=== PATIENT | female | born 1980 | race Caucasian/White ===

== ENCOUNTER 2016-12-02 00:13 | Emergency (ER) | payer SELFPAY ==
[~2016-12-02] VITALS: Ht 162.6 cm; Wt 91.0 kg
[~2016-12-02 00:13] MED LIST: FIORICET PO; HYDR-3498 PO; IBUP800T25 PO; PROP20TA4 PO
[2016-12-02 00:16] VITALS: Ht 162.6 cm; Wt 91.0 kg
== END 2016-12-02 02:50 | disposition left against medical advice (07) ==
LOC: FTE 00:13
DX: Z53.21 Procedure and treatment not carried out due to patient leaving prior to being seen by health care provider (principal)

== ENCOUNTER 2017-03-30 09:59 | Emergency (ER) | payer BC ==
[~2017-03-30] VITALS: Ht 160 cm; Wt 89.0 kg
[2017-03-30 10:03] VITALS: Ht 160 cm; Wt 89.0 kg
[2017-03-30] MEDS ORDERED: ACETAMINOPHEN 325 MG TAB PO STA (10:57)
[2017-03-30] MEDS ORDERED: ONDANSETRON (ODT) 4 MG TAB ODT STA (10:57)
[2017-03-30 11:51] LABS: ADD UMIC NO; UR BILIRUBIN (Dip) NEGATIVE (NEGATIVE); UR BLOOD (Dip) NEGATIVE (NEGATIVE); UR CLARITY CLEAR (CLEAR); UR COLOR LT. YELLOW (YELLOW); UR GLUCOSE (Dip) NEGATIVE (NEGATIVE); UR KETONES (Dip) NEGATIVE (NEGATIVE); UR LEUKOCYTE ESTERASE (Dip) NEGATIVE (NEGATIVE); UR NITRITE (Dip) NEGATIVE (NEGATIVE); UR TOTAL PROTEIN (Dip) NEGATIVE (NEGATIVE); UR UROBILINOGEN (Dip) 0.2 E.U./dL (0.1-1.0)
--- NOTE | 2017-03-30 11:55 | RADRPT ---
PROCEDURE: CT Head without. CLINICAL INDICATION: Headache for 1 week. TECHNIQUE: The study was performed utilizing a multi-slice, multidetector CT scanner. Direct spira l 1 mm axial sections were obtained through the head without the use of intravenous contrast materia l. 1 or more of the following dose reduction techniques were utilized: Automated exposure control, adjustment of the mA and/or kV according to patient's size, iterative reconstruction technique. Co dilip and sagittal reformations were obtained. The images were reviewed on a PACS workstation. RADIATION DOSE: CTDIvol: 44.3 mGyDLP: 630.2 mGy-cm COMPARISON: 05/17/2015, 09/16/2014 FINDINGS: There is no intracranial hemorrhage, extra-axial fluid collection, mass lesion, midline shift or hyd rocephalus. The ventricles, sulci and cisterns are within normal limits. The white matter is unrem arkable. The juárez-white matter differentiation is preserved. The basal cisterns are patent. The m idline structures are intact. The orbits, calvarium and extracranial soft tissues are normal in john earance. There are moderate to severe inflammatory changes of the bilateral ethmoid air cells and mi ld inflammatory changes of the right sphenoid sinus. The mastoid air cells and middle ear cavities are normally aerated. IMPRESSION: 1. No acute intracranial abnormality. No intracranial hemorrhage, extra-axial fluid collection, ma ss lesion or hydrocephalous. 2. Moderate to severe inflammatory changes of the bilateral ethmoid air cells. RPTAT: DD .Laron Kendall MD, Date Time Electronically viewed and signed by .Laron Kendall MD, on 03/30/2017 11:55 .S/
[2017-03-30] MEDS ORDERED: LORA-186 PO (12:15)
[2017-03-30] MEDS ORDERED: FLUT9.9S NASAL (12:15)
[2017-03-30] MEDS ORDERED: ACET325T33 PO (12:15)
[2017-03-30] MEDS ORDERED: ONDA4TAB14 PO (12:15)
--- NOTE | 2017-03-30 12:30 | ERD ---
ER Documentation Chief Complaint Date/Time DATE: 03/30/17 TIME: 12:28 Chief Complaint ROMERO X 5 DAYS HPI This is a 36-year-old female presenting to the emergency department complaining of headache since Wednesday. Patient describes the pain as moderate in severity , comes and goes and states that it feels like pressure or like a tight band surrounding her head. Patient admits to having nausea and photophobia. She denies any other neurological deficits. Patient states that she tried ibuprofen without much relief. Patient states that about a week ago she did fall and hit her head, she did not have any headache, loss of consciousness, or abnormal changes at that time ROS All systems reviewed and are negative except as per history of present illness. Medications Home Meds Active Scripts Acetaminophen* (Tylenol*) 325 Mg Tablet, 2 TAB PO Q6 Y for PAIN AND OR ELEVATED TEMP, #20 TAB Prov:JORDAN BISHOP PA-C 03/30/17 Loratadine* (Claritin*) 10 Mg Tablet, 10 MG PO DAILY, #30 TAB Prov:JORDAN BISHOP PA-C 03/30/17 Fluticasone Propionate (Flonase Allergy Relief) 9.9 Ml [place].susp, 1 SPRAY NASAL BID, #1 BOTTLE TO EACH NOSTRIL Prov:JORDAN BISHOP PA-C 03/30/17 Ondansetron (Ondansetron Odt) 4 Mg Tab.rapdis, 4 MG PO Q6H Y for NAUSEA AND/OR VOMITING, #20 TAB Prov:JORDAN BISHOP PA-C 03/30/17 Hydrocodone Bit-Acetaminophen* ([place]*) 5-325 Mg Tab, 1 TAB PO Q6 Y for PAIN, # 7 TAB Prov:BRONWYN FREEMAN MD 05/17/15 Reported Medications Acetamin/Butalbital/Caffeine* (Fioricet*) 1 Tab Tab, 1-2 TAB PO Q4-6 HOURS Y for PAIN LEVEL 1-5, TAB 05/17/15 Ibuprofen* (Ibuprofen*) 800 Mg Tab, 800 MG PO Q6H Y for PAIN, TAB 05/17/15 Propranolol Hcl* (Propranolol Hcl*) 20 Mg Tablet, 20 MG PO BID, TAB 05/17/15 Allergies Allergies: Coded Allergies: No Known Drug Allergies (Verified Allergy, Mild, 05/17/15) PMhx/Soc History of Surgery: Yes (BILAT EAR SURGERY) Anesthesia Reaction: No Hx Neurological Disorder: Yes (MIGRAINE) Hx Respiratory Disorders: No Hx Cardiac Disorders: Yes (HTN) Hx Psychiatric Problems: No Hx Miscellaneous Medical Probl: No Hx Alcohol Use: No Hx Substance Use: No Hx Tobacco Use: No Smoking Status: Never smoker Physical Exam Vitals Vital Signs Date Time Temp Pulse Resp B/P Pulse Ox O2 Delivery O2 Flow Rate FiO2 03/30/17 10:03 78 18 140/78 99 Physical Exam GENERAL: well-developed/well-nourished, in no apparent distress, non-toxic appearing HENT: NC/AT, bilateral tympanic membrane is normal with good cone of light, nares patent, oropharynx clear without exudates EYES: Conjunctiva normal, PERRLA, EOMI, no nystagmus noted NECK: Supple, no lymphadenopathy PULM: CTA bilaterally, no rales, rhonchi, or wheezing heard CV: Normal S1S2, RRR, good capillary refill GI: Soft, non-distended, normal bowel sounds, non-tender BACK: No midline tenderness, no masses, No CVAT EXT: No clubbing, cyanosis, or edema NEURO: Alert and orientated to person, place, and time. CN II-IIX intact. Gait and coordination were normal. Hand crab backer strength were equal and within normal limits SKIN: Intact, normal turgor PSYCH: Normal mood and mentation, patient denied SI Results 24 hrs Laboratory Tests Test 03/30/17 11:23 Urine Color LT. YELLOW Urine Clarity CLEAR Urine pH 6.5 Urine Specific [place] 1.015 Urine Ketones NEGATIVE Urine Nitrite NEGATIVE Urine Bilirubin NEGATIVE Urine Urobilinogen 0.2 E.U./dL Urine Leukocyte Esterase NEGATIVE Urine Hemoglobin NEGATIVE Urine Glucose NEGATIVE% Urine Total Protein NEGATIVE Current Medications Medications (Trade) Dose Ordered Sig/Dodie Route PRN Reason Start Time Stop Time Status Last Admin Dose Admin Ondansetron HCl (Zofran Odt) 8 mg ONCE STAT ODT 03/30/17 10:57 03/30/17 10:58 DC 03/30/17 11:34 Acetaminophen (Tylenol Tab) 650 mg ONCE STAT PO 03/30/17 10:57 03/30/17 10:58 DC 6/13/17 11:34 Procedures/MDM MDM: 36 year old female presents with headache. My differential diagnoses include tension, migraine, and cluster headache, overuse medication headache, subarachnoid hemorrhage, meningitis, stroke. Pain relief was given in the ED with some improvement. Neurology exam was normal. CT of the head was done, radiologist stated: 1. No acute intracranial abnormality. No intracranial hemorrhage, extra-axial fluid collection, mass lesion or hydrocephalous. 2. Moderate to severe inflammatory changes of the bilateral ethmoid air cells. DISPOSITION: hemodynamically stable and neurovascularly intact to be discharged home. Prescriptions tylenol, flonase, claritin, zofran were given. Discussed to follow up with a primary care physician in the next couple days. Return to the ER if condition worsens or not improving as expected. Patient agreed and understood this plan. Departure Diagnosis: Primary Impression: Headache Condition: Stable Patient Instructions: What Are Migraine and Tension Headaches?, Self-Care for Headaches, Chronic Sinusitis Additional Instructions: Visite a saunders adelaida arshad para un EXAMEN.Regrese a estas instalaciones si no se mejora mesfin esperbamos o mesfin le dijimos. [place] toda la medicina feng y mesfin se le indic. Regrese a estas instalaciones si no se mejora mesfin esperbamos o mesfin le dijimos. JORDAN BISHOP PA-C Mar 30, 2017 12:30
== END 2017-03-30 12:54 | disposition home or self-care (01) ==
LOC: FTE 09:59
DX: R51 Headache (principal); I10 Essential (primary) hypertension
CPT/HCPCS: 70450; 81003; Z7610

== ENCOUNTER 2017-05-05 22:17 | Emergency (ER) | payer SELFPAY ==
[~2017-05-05] VITALS: Ht 162.6 cm; Wt 92.5 kg
[~2017-05-05 22:17] MED LIST changes: +ACET325T33 PO; +FLUT9.9S NASAL; +LORA-186 PO; +ONDA4TAB14 PO
[2017-05-05 22:21] VITALS: Ht 162.6 cm; Wt 92.5 kg
[2017-05-07] MEDS ORDERED: PROP20TA4 PO (18:46)
[2017-05-07] MEDS ORDERED: PRED20TA PO (21:09)
[2017-05-07] MEDS ORDERED: AZIT250T94 PO (21:09)
[2017-05-07] MEDS ORDERED: ALBU8.5H3 INH (21:09)
[2017-05-07] MEDS ORDERED: HYDR-906 PO (21:09)
== END 2017-05-06 01:23 | disposition left against medical advice (07) ==
LOC: FTE 22:17
DX: Z53.21 Procedure and treatment not carried out due to patient leaving prior to being seen by health care provider (principal)

== ENCOUNTER 2017-05-07 14:04 | Emergency (ER) | payer BC ==
[~2017-05-07] VITALS: Wt 74.0 kg
[2017-05-07] MEDS ORDERED: CEFTRIAXONE 1 GM/50 ML (PMX) 50 ML IVPB STA (18:39)
[2017-05-07] MEDS ORDERED: SOD CHLORIDE 0.9% 500 ML IV STA (18:39)
[2017-05-07] MEDS ORDERED: AZITHROMYCIN 500MG/NS (PMX) 250 ML IV STA (18:39)
[2017-05-07] MEDS ORDERED: PROP20TA4 PO (18:46)
--- NOTE | 2017-05-07 19:05 | RADRPT ---
PROCEDURE: XR Chest. CLINICAL INDICATION: Shortness of breath. TECHNIQUE: A single portable view of the chest was obtained. COMPARISON: 05/17/2015 FINDINGS: The cardiomediastinal silhouette is within normal limits. The lungs and pleural spaces are clear. The soft tissues and osseous structures are unremarkable. IMPRESSION: No acute cardiopulmonary disease. RPTAT: HPNM Physician Tyshawn Date Time Electronically viewed and signed by Dean Figueroa Physician on 05/07/2017 19:05 /
[2017-05-07 19:37] LABS: BASOPHIL # 0.1 10^3/ul (0.0-0.1); BASOPHILS % 0.5 % (0.0-2.0); EOSINOPHILS # 0.2 10^3/ul (0.0-0.5); EOSINOPHILS % 1.6 % (0.0-7.0); HEMATOCRIT 37.9 % (37.0-47.0); HEMOGLOBIN 13.1 g/dl (12.0-16.0); LYMPHOCYTES # 2.5 10^3/ul (0.8-2.9); LYMPHOCYTES % 25.8 % (15.0-51.0); MEAN CORPUSCULAR HEMOGLOBIN 32.5 pg (29.0-33.0); MEAN CORPUSCULAR HGB CONC 34.6 g/dl (32.0-37.0); MEAN PLATELET VOLUME 9.5 fl (7.4-10.4); MONOCYTE # 0.6 10^3/ul (0.3-0.9); MONOCYTES % 6.4 % (0.0-11.0); NEUTROPHIL # 6.4 10^3/ul (1.6-7.5); NEUTROPHILS % 65.2 % (39.0-77.0); PLATELET COUNT 372 10^3/UL (140-415); RED BLOOD COUNT 4.03 10^6/ul (4.20-5.40); RED CELL DISTRIBUTION WIDTH 12.4 % (11.5-14.5); WHITE BLOOD COUNT 9.8 10^3/ul (4.8-10.8)
[2017-05-07 19:56] LABS: ALBUMIN 4.4 g/dl (3.3-4.9); ALBUMIN/GLOBULIN RATIO 1.37; CALCIUM 9.4 mg/dl (8.4-10.2); CREATININE 0.62 mg/dl (0.44-1.00); POTASSIUM 3.9 mmol/L (3.5-5.1); TOTAL PROTEIN 7.6 g/dl (6.1-8.1)
[2017-05-07 20:00] LABS: BILIRUBIN,INDIRECT 0.2 mg/dl (0-1.1); BILIRUBIN,TOTAL 0.2 mg/dl (0.2-1.3)
[2017-05-07 20:42] VITALS: TEMP 98.3
[2017-05-07] MEDS ORDERED: HYDR-906 PO (21:09)
[2017-05-07] MEDS ORDERED: AZIT250T94 PO (21:09)
[2017-05-07] MEDS ORDERED: PRED20TA PO (21:09)
[2017-05-07] MEDS ORDERED: ALBU8.5H3 INH (21:09)
--- NOTE | 2017-05-07 21:20 | ERD ---
ER Documentation Chief Complaint Date/Time DATE: 05/07/17 TIME: 21:10 Chief Complaint cough / chest pain HPI This is a 36-year-old female who complains of productive cough for 3 days that is yellow. She is complaining of diffuse anterior and posterior chest wall pain when she coughs. She also has body aches and malaise and chills. No documented fever. No shortness of breath. No abdominal pain vomiting diarrhea. Denies any runny nose congestion sore throat ROS All systems reviewed and are negative except as per history of present illness. Medications Home Meds Active Scripts Hydrocodone/Acetaminophen ([place] 5-325 Tablet) 1 Each Tablet, 1 TAB PO Q6H Y for PAIN, #15 TAB Prov:DURAN DIAMOND DO 05/07/17 Prednisone* (Prednisone*) 20 Mg Tab, 60 MG PO DAILY for 5 Days, TAB Prov:DURAN DIAMOND DO 05/07/17 Albuterol Sulfate* (Proair HFA*) 8.5 Gm Hfa.aer.ad, 2 PUFF INH Q4, #1 INHALER Prov:DURAN DIAMOND DO 05/07/17 Azithromycin* (Zithromax*) 250 Mg Tablet, 250 MG PO .ZPACK DIRECTED, #6 TAB TAKE 500 MG (2 TABS) THE FIRST DAY THEN 250 MG (1 TAB) DAYS 2-5 Prov:DURAN DIAMOND DO 05/07/17 Reported Medications Propranolol Hcl* (Propranolol Hcl*) 20 Mg Tablet, 20 MG PO TID, TAB PATIENT TAKE 2 OR 3 TIMES A DAY 05/07/17 Discontinued Reported Medications Acetamin/Butalbital/Caffeine* (Fioricet*) 1 Tab Tab, 1-2 TAB PO Q4-6 HOURS Y for PAIN LEVEL 1-5, TAB 05/17/15 Ibuprofen* (Ibuprofen*) 800 Mg Tab, 800 MG PO Q6H Y for PAIN, TAB 05/17/15 Propranolol Hcl* (Propranolol Hcl*) 20 Mg Tablet, 20 MG PO BID, TAB 05/17/15 Discontinued Scripts Acetaminophen* (Tylenol*) 325 Mg Tablet, 2 TAB PO Q6 Y for PAIN AND OR ELEVATED TEMP, #20 TAB Prov:JODRAN BISHOP PA-C 03/30/17 Loratadine* (Claritin*) 10 Mg Tablet, 10 MG PO DAILY, #30 TAB Prov:JORDAN BISHOP PA-C 03/30/17 Fluticasone Propionate (Flonase Allergy Relief) 9.9 Ml [place].susp, 1 SPRAY NASAL BID, #1 BOTTLE TO EACH NOSTRIL Prov:JORDAN BISHOP PA-C 03/30/17 Ondansetron (Ondansetron Odt) 4 Mg Tab.rapdis, 4 MG PO Q6H Y for NAUSEA AND/OR VOMITING, #20 TAB Prov:JORDAN BISHOP PA-C 03/30/17 Hydrocodone Bit-Acetaminophen* ([place]*) 5-325 Mg Tab, 1 TAB PO Q6 Y for PAIN, # 7 TAB Prov:BRONWYN FREEMAN MD 05/17/15 Allergies Allergies: Coded Allergies: No Known Drug Allergies (Verified Allergy, Mild, 05/07/17) PMhx/Soc History of Surgery: Yes (BILAT EAR SURGERY) Anesthesia Reaction: No Hx Neurological Disorder: Yes (MIGRAINE) Hx Respiratory Disorders: No Hx Cardiac Disorders: Yes (HTN) Hx Psychiatric Problems: No Hx Miscellaneous Medical Probl: No Hx Alcohol Use: No Hx Substance Use: No Hx Tobacco Use: No Smoking Status: Never smoker FmHx Family History: No coronary disease Physical Exam Vitals Vital Signs Date Time Temp Pulse Resp B/P Pulse Ox O2 Delivery O2 Flow Rate FiO2 05/07/17 20:42 98.3 88 18 120/76 99 05/07/17 19:25 98.8 88 18 117/77 99 05/07/17 14:13 98.0 78 18 127/81 99 Physical Exam Const: Well-developed, well-nourished Head: Atraumatic, normocephalic Eyes: Normal Conjunctiva, PERRLA, EOMI, normal sclera, no nystagmus ENT: Normal External Ears, Nose and Mouth, moist mucus membranes. Neck: Full range of motion. No meningismus, no lymphadenopathy. Resp: Clear to auscultation bilaterally, no wheezing, rhonchi, rales, tender anterior and posterior chest wall with palpation Cardio: Regular rate and rhythm, no murmurs, S1 S2 present Abd: Soft, non tender x 4, non distended. Normal bowel sounds, no guarding or rebound, no pulsitile abdominal masses or bruits Skin: No petechiae or rashes, no ecchymosis , no maculopapular rash Back: No midline or flank tenderness Ext: No cyanosis, or edema, FROM x 4, normal inspection, neurovascularly intact x 4 Neur: Awake and alert, STR 5/5 x 4, sensation intact x 4, no focal findings, cerebellum intact Psych: Normal Mood and Affect Result Diagram: 05/07/17184405/07/171844 Results 24 hrs Laboratory Tests Test 05/07/17 18:45 White Blood Count 9.810^3/ul Red Blood Count 4.0310^6/ul Hemoglobin 13.1g/dl Hematocrit 37.9% Mean Corpuscular Volume 94.0fl Mean Corpuscular Hemoglobin 32.5pg Mean Corpuscular Hemoglobin Concent 34.6g/dl Red Cell Distribution Width 12.4% Platelet Count 89385^3/UL Mean Platelet Volume 9.5fl Neutrophils % 65.2% Lymphocytes % 25.8% Monocytes % 6.4% Eosinophils % 1.6% Basophils % 0.5% Nucleated Red Blood Cells % 0.0/100WBC Neutrophils # 6.410^3/ul Lymphocytes # 2.510^3/ul Monocytes # 0.610^3/ul Eosinophils # 0.210^3/ul Basophils # 0.110^3/ul Nucleated Red Blood Cells # 0.010^3/ul Sodium Level 144mmol/L Potassium Level 3.9mmol/L Chloride Level 102mmol/L Carbon Dioxide Level 26mmol/L Anion Gap 20 Blood Urea Nitrogen 8mg/dl Creatinine 0.62mg/dl Glucose Level 98mg/dl Calcium Level 9.4mg/dl Total Bilirubin 0.2mg/dl Direct Bilirubin 0.00mg/dl Indirect Bilirubin 0.2mg/dl Aspartate Amino Transf (AST/SGOT) 24IU/L Alanine Aminotransferase (ALT/SGPT) 45IU/L Alkaline Phosphatase 87IU/L Total Protein 7.6g/dl Albumin 4.4g/dl Globulin 3.20g/dl Albumin/Globulin Ratio 1.37 Current Medications Medications (Trade) Dose Ordered Sig/Dodie Route PRN Reason Start Time Stop Time Status Last Admin Dose Admin Sodium Chloride 500 ml @ 500 mls/hr Q1H STAT IV 05/07/17 18:39 05/07/17 19:38 DC 05/07/17 19:08 Azithromycin 250 ml @ 250 mls/hr ONCE STAT IV 05/07/17 18:39 05/07/17 19:38 DC 05/07/17 19:32 Ceftriaxone Sodium (Rocephin) 50 ml @ 100 mls/hr ONCE STAT IVPB 05/07/17 18:39 05/07/17 19:08 DC 05/07/17 19:08 Procedures/MDM PROCEDURE: XR Chest. CLINICAL INDICATION: Shortness of breath. TECHNIQUE: A single portable view of the chest was obtained. COMPARISON: 05/17/2015 FINDINGS: The cardiomediastinal silhouette is within normal limits. The lungs and pleural spaces are clear. The soft tissues and osseous structures are unremarkable. IMPRESSION: No acute cardiopulmonary disease. RPTAT: HPNM Physician Tyshawn Date Time Electronically viewed and signed by Dean Figueroa Physician on 05/07/2017 19 :05 / CC: DURAN DIAMOND DO Patient is a clear chest x-ray negative blood work. Patient likely has bronchitis/URI. She is coughing up productive yellow sputum and evidence of pneumonia. Will treat with Zithromax albuterol and prednisone. Departure Diagnosis: Primary Impression: Bronchitis Condition: Stable Patient Instructions: Bronchitis, Antiobiotic Treatment (Adult) DURAN DIAMOND DO May 07, 2017 21:20
[2017-05-07 21:26] VITALS: BP 124/87; PULSE 67; RESP 18
== END 2017-05-07 21:37 | disposition home or self-care (01) ==
LOC: E/R 14:04
DX: J20.9 Acute bronchitis, unspecified (principal); I10 Essential (primary) hypertension
CPT/HCPCS: 36415; 71010; 80053; 85025; 96374; 96375; J0456; J0696; J7040; Z7502

== ENCOUNTER 2017-08-29 18:41 | Emergency (ER) | payer BC ==
[~2017-08-29] VITALS: Ht 167.6 cm; Wt 90.0 kg
[~2017-08-29 18:41] MED LIST changes: -ACET325T33 PO; +ALBU8.5H3 INH; +AZIT250T94 PO; -FIORICET PO; -FLUT9.9S NASAL; -HYDR-3498 PO; +HYDR-906 PO; -IBUP800T25 PO; -LORA-186 PO; -ONDA4TAB14 PO; +PRED20TA PO
[2017-08-29 18:44] VITALS: Ht 167.6 cm; Wt 90.0 kg
--- NOTE | 2017-08-29 20:41 | ERD ---
ER Documentation Chief Complaint Chief Complaint Bilateral ovary pain for a month HPI This is a 36-year-old female presents the emergency department today complaining of abdominal pain for the past month. States that she has been taking amoxicillin because she thought she had an infection in her stomach. States she is also taking ibuprofen. States that she has been trying to get unsuccessfully keeps having her menstrual cycle. Denies any vaginal bleeding currently. Denies any fevers or chills, vomiting. States that she has a primary care doctor and she has referral to a anesthesiology faculty on September 06. ROS All systems reviewed and are negative except as per history of present illness. Medications Home Meds Active Scripts Docusate Sodium* (Colace*) 100 Mg Capsule, 100 MG PO TID, #30 CAP Prov:LUIS CARMONA PA-C 08/29/17 Polyethylene Glycol* (Miralax*) 17 Gm Powd.pack, 17 GM PO DAILY, #15 Prov:LUIS CARMONA PA-C 08/29/17 Acetaminophen* (Tylophen*) 500 Mg Capsule, 1 CAP PO Q6H Y for PAIN AND OR ELEVATED TEMP, #30 CAP Prov:LUIS CARMONA PA-C 08/29/17 Naproxen* (Naprosyn*) 500 Mg Tablet, 500 MG PO BID Y for PAIN AND/OR INFLAMMATION, #30 TAB Prov:LUIS CARMONA PA-C 08/29/17 Hydrocodone/Acetaminophen (Crawley 5-325 Tablet) 1 Each Tablet, 1 TAB PO Q6H Y for PAIN, #15 TAB Prov:DURAN DIAMOND DO 05/07/17 Prednisone* (Prednisone*) 20 Mg Tab, 60 MG PO DAILY for 5 Days, TAB Prov:DURAN DIAMOND DO 05/07/17 Albuterol Sulfate* (Proair HFA*) 8.5 Gm Hfa.aer.ad, 2 PUFF INH Q4, #1 INHALER Prov:DURAN DIAMOND DO 05/07/17 Azithromycin* (Zithromax*) 250 Mg Tablet, 250 MG PO .AstridPACK DIRECTED, #6 TAB TAKE 500 MG (2 TABS) THE FIRST DAY THEN 250 MG (1 TAB) DAYS 2-5 Prov:DURAN DIAMOND DO 05/07/17 Reported Medications Propranolol Hcl* (Propranolol Hcl*) 20 Mg Tablet, 20 MG PO TID, TAB PATIENT TAKE 2 OR 3 TIMES A DAY 05/07/17 Allergies Allergies: Coded Allergies: No Known Drug Allergies (Verified Allergy, Mild, 05/07/17) PMhx/Soc History of Surgery: Yes (ovarian cyst removal) Anesthesia Reaction: No Hx Neurological Disorder: Yes (migraine ROMERO) Hx Respiratory Disorders: No Hx Cardiac Disorders: Yes (HTN) Hx Psychiatric Problems: No Hx Miscellaneous Medical Probl: No Hx Alcohol Use: No Hx Substance Use: No Hx Tobacco Use: No Smoking Status: Never smoker Physical Exam Vitals Vital Signs Date Time Temp Pulse Resp B/P Pulse Ox O2 Delivery O2 Flow Rate FiO2 08/29/17 18:44 97.7 78 18 142/84 99 Physical Exam Const: NAD Head: Atraumatic Eyes: Normal Conjunctiva ENT: Normal External Ears, Nose and Mouth. Neck: Full range of motion..~ No meningismus. Resp: Clear to auscultation bilaterally Cardio: Regular rate and rhythm, no murmurs Abd: Soft, diffuse lower abdominal and periumbilical pain non distended. Normal bowel sounds no specific tenderness at McBurney's. Skin: No petechiae or rashes Back: No midline or flank tenderness Ext: No cyanosis, or edema Neur: Awake and alert Psych: Normal Mood and Affect Result Diagram: 08/29/17204908/29/172049 Results 24 hrs Laboratory Tests Test 08/29/17 20:45 08/29/17 20:50 Urine Color YELLOW Urine Clarity CLEAR Urine pH 5.0 Urine Specific [place] 1.023 Urine Ketones NEGATIVEmg/dL Urine Nitrite NEGATIVEmg/dL Urine Bilirubin NEGATIVEmg/dL Urine Urobilinogen 2+mg/dL Urine Leukocyte Esterase NEGATIVELeu/ul Urine Hemoglobin NEGATIVEmg/dL Urine Glucose NEGATIVEmg/dL Urine Total Protein NEGATIVEmg/dl White Blood Count 13.810^3/ul Red Blood Count 4.4310^6/ul Hemoglobin 13.8g/dl Hematocrit 41.0% Mean Corpuscular Volume 92.6fl Mean Corpuscular Hemoglobin 31.2pg Mean Corpuscular Hemoglobin Concent 33.7g/dl Red Cell Distribution Width 12.1% Platelet Count 84743^3/UL Mean Platelet Volume 9.3fl Neutrophils % 68.8% Lymphocytes % 24.0% Monocytes % 4.7% Eosinophils % 1.4% Basophils % 0.7% Nucleated Red Blood Cells % 0.0/100WBC Neutrophils # 9.510^3/ul Lymphocytes # 3.310^3/ul Monocytes # 0.710^3/ul Eosinophils # 0.210^3/ul Basophils # 0.110^3/ul Nucleated Red Blood Cells # 0.010^3/ul Sodium Level 143mmol/L Potassium Level 3.6mmol/L Chloride Level 104mmol/L Carbon Dioxide Level 29mmol/L Anion Gap 14 Blood Urea Nitrogen 11mg/dl Creatinine 0.69mg/dl Glucose Level 100mg/dl Calcium Level 10.0mg/dl Total Bilirubin 0.1mg/dl Direct Bilirubin 0.00mg/dl Indirect Bilirubin 0.1mg/dl Aspartate Amino Transf (AST/SGOT) 21IU/L Alanine Aminotransferase (ALT/SGPT) 32IU/L Alkaline Phosphatase 85IU/L Total Protein 7.7g/dl Albumin 4.2g/dl Globulin 3.50g/dl Albumin/Globulin Ratio 1.20 Lipase 72U/L Current Medications Medications (Trade) Dose Ordered Sig/Dodie Route PRN Reason Start Time Stop Time Status Last Admin Dose Admin Acetaminophen/ Hydrocodone Bitart (Crawley (5/325)) 1 tab ONCE ONCE PO 08/29/17 21:00 08/29/17 21:01 DC 08/29/17 21:20 PROCEDURE: CT ABDOMEN AND PELVIS WITHOUT CONTRAST. CLINICAL INDICATION: Abdominal pain TECHNIQUE: CT scan of the abdomen and pelvis without contrast was performed on a multidetector high-resolution CT scanner. The patient was scanned without intravenous contrast. Coronal and sagittal reformatted images were obtained from the axial source images. Images were reviewed on a high-resolution PACS workstation. The total exam CTDI equals 16.5 mGy and the total exam DLP equals 1003.2 mGy-cm. One or more of the following dose reduction techniques were used: Automated exposure control. Adjustment of the mA and/or kV according to patient size. Use of iterative reconstruction technique. COMPARISON: None FINDINGS: CT abdomen: The lung bases are clear. The heart size is within limits. There is no significant pericardial effusion. Hepatic morphology is within normal limits. No gross contour deforming masses. The gallbladder is contracted. No evidence of intrahepatic or extrahepatic biliary dilatation. The spleen and pancreas are within normal limits. Both adrenal glands are within normal limits. Both kidneys are normal anatomic position. No gross renal/ureteric calculi. No evidence of obstruction or hydronephrosis. The visualized GI tract demonstrate normal caliber loops of small and large bowel. No evidence of bowel obstruction. The appendix is within normal limits. The unenhanced aorta is unremarkable. Several shoddy retroperitoneal lymph nodes are noted. CT pelvis: The bladder is within normal limits. The uterus is elongated, containing fluid in the endometrial canal. There is a left cystic adnexa measuring 3.8 cm. The rectosigmoid colon demonstrate diverticulosis. No significant free fluid. No significant pelvic lymphadenopathy. The visualized osseous structures, appears to be within normal limits. IMPRESSION: 1. No evidence of acute intra-abdominal/pelvic inflammatory process. No evidence of bowel obstruction. The appendix is within normal limits. 2. Stool filled loops of large bowel suggestive of constipation. Mild sigmoid diverticulosis. 3. Elongated uterus with fluid within the endometrial canal and 3.8 cm left cystic adnexa. Findings can be physiologic within normal limits. Consider correlation with ultrasound pelvis, if clinically indicated. 4. No free fluid or free air. No gross focal fluid collections. Otherwise, unremarkable unenhanced CT scan of the abdomen/pelvis. RPTAT: AAPP Physician Abimbola Date Time Electronically viewed and signed by Physician Abimbola on 08/29/2017 22:33 JL/ CC: LUIS CARMONA PA-C DIAGNOSTIC IMAGING REPORT Patient: JEANIE WEBSTER : 1980 Age: 36 Sex: F MR #: [id number] DOS: 08/29/17 0000 Ordering MD: LUIS CARMONA PA-C Location: [facility] Room/Bed: AMENDMENT: 08/29/2017 11:18:50 PM Raymond Cartagena Md COMPARISON: CT abdomen/pelvis August 29, 2017. PROCEDURE: ULTRASOUND PELVIS CLINICAL INDICATION: 36-year-old female with abdominal pain. TECHNIQUE: Multiple sonographic images of the pelvis were obtained utilizing a transabdominal and endovaginal technique. The images were reviewed on a PACS workstation. COMPARISON: None. FINDINGS: The uterus is visualized and measures 9.4 x 4.8 x 6.8 cm. The endometrial echo complex is mildly prominent and measures 14.2 mm. There is no evidence for free fluid. The right ovary has a normal echotexture and measures 3.4 x 2.2 x 2.3 cm. The left ovary has a normal echotexture and measures 3.7 x 2.5 x 3.1 cm. There is a left ovarian simple cyst measuring 2.6 x 1.8 x 2.6 cm. There is flow identified within the ovaries bilaterally. No adnexal masses are noted. IMPRESSION: 1. Left ovarian cyst. 2. Prominent endometrial echo complex. .Raymond Cartagena MD, Date Time Electronically viewed and signed by .Raymond Cartagena MD, MD on 08/29/2017 23:18 .M/ CC: LUIS CARMONA PA-C Procedures/[facility] This a 36-year-old female who presents emergency department today complaining of abdominal pain for the past month. On physical exam patient had diffuse lower abdominal pain and periumbilical pain and therefore did obtain laboratory workup as well as imaging. Laboratory workup shows a mildly elevated white blood cell count. She is not anemic. Platelets are within normal limits. Electrolytes are within normal limits. Glucose is within normal limits. Liver enzymes are within normal limits. Lipase is within normal limits UA is negative for infection. Urine test is negative CT abdomen pelvis non contrast shows no evidence of acute intra-abdominal pelvic inflammatory process. There is no evidence of bowel obstruction. The appendix is within normal limits. There is stool filled loops of large bowel suggestive of constipation. There is mild sigmoid diverticulosis. There is an elongated uterus with fluid within the endometrial canal and a 3.8 cm left cystic adnexa. Consider correlation with ultrasound pelvis. There is no free fluid or free air. Given CT findings of left cystic adnexa I did obtain an ultrasound US shows a left ovarian cyst. There is flow identified within the ovaries bilaterally. There are no adnexal masses. Symptoms at this time is consistent with abdominal and pelvic pain of uncertain etiology however it may be related to ovarian cyst. She was given Crawley here in the emergency department. Given a prescription for Naprosyn, Tylenol, MiraLAX and Colace. At this time the patient is stable for discharge and outpatient management. Patient should follow up with their PCP in the next 1-2 days. Instructed to keep her appointment with her anesthesiology faculty. they may return to the emergency department sooner for any persistent or worsening of symptoms. Patient understood and agreed with the plan. Departure Diagnosis: Primary Impression: Abdominal pain Abdominal location: lower abdomen, unspecified Qualified Code: R10.30 - Lower abdominal pain Condition: Fair LUIS CARMONA PA-C Aug 29, 2017 20:41
[2017-08-29] MEDS ORDERED: HYDROCODONE/APAP (5/325) TAB PO ONE (21:00)
[2017-08-29 21:01] LABS: BASOPHIL # 0.1 10^3/ul (0.0-0.1); BASOPHILS % 0.7 % (0.0-2.0); EOSINOPHILS # 0.2 10^3/ul (0.0-0.5); EOSINOPHILS % 1.4 % (0.0-7.0); HEMOGLOBIN 13.8 g/dl (12.0-16.0); LYMPHOCYTES # 3.3 10^3/ul (0.8-2.9); MEAN CORPUSCULAR HEMOGLOBIN 31.2 pg (29.0-33.0); MEAN CORPUSCULAR HGB CONC 33.7 g/dl (32.0-37.0); MEAN CORPUSCULAR VOLUME 92.6 fl (82.0-101.0); MEAN PLATELET VOLUME 9.3 fl (7.4-10.4); MONOCYTE # 0.7 10^3/ul (0.3-0.9); MONOCYTES % 4.7 % (0.0-11.0); NEUTROPHIL # 9.5 10^3/ul (1.6-7.5); NEUTROPHILS % 68.8 % (39.0-77.0); PLATELET COUNT 387 10^3/UL (140-415); RED BLOOD COUNT 4.43 10^6/ul (4.20-5.40); RED CELL DISTRIBUTION WIDTH 12.1 % (11.5-14.5); WHITE BLOOD COUNT 13.8 10^3/ul (4.8-10.8)
[2017-08-29 21:21] LABS: ALBUMIN 4.2 g/dl (3.3-4.9); ALBUMIN/GLOBULIN RATIO 1.2; BILIRUBIN,INDIRECT 0.1 mg/dl (0-1.1); BILIRUBIN,TOTAL 0.1 mg/dl (0.2-1.3); CREATININE 0.69 mg/dl (0.44-1.00); POTASSIUM 3.6 mmol/L (3.5-5.1); TOTAL PROTEIN 7.7 g/dl (6.1-8.1)
[2017-08-29 21:28] LABS: ADD UMIC NO; UR ASCORBIC ACID 20 mg/dL (NEGATIVE); UR BILIRUBIN (Dip) NEGATIVE (NEGATIVE); UR BLOOD (Dip) NEGATIVE (NEGATIVE); UR CLARITY CLEAR (CLEAR); UR COLOR YELLOW (YELLOW); UR GLUCOSE (Dip) NEGATIVE (NEGATIVE); UR KETONES (Dip) NEGATIVE (NEGATIVE); UR LEUKOCYTE ESTERASE (Dip) NEGATIVE Leu/ul (NEGATIVE); UR NITRITE (Dip) NEGATIVE (NEGATIVE); UR SPECIFIC GRAVITY (Dip) 1.023 (1.003-1.030); UR TOTAL PROTEIN (Dip) NEGATIVE (NEGATIVE); UR UROBILINOGEN (Dip) 2+ mg/dL (NEGATIVE)
--- NOTE | 2017-08-29 22:34 | RADRPT ---
PROCEDURE: CT ABDOMEN AND PELVIS WITHOUT CONTRAST. CLINICAL INDICATION: Abdominal pain TECHNIQUE: CT scan of the abdomen and pelvis without contrast was performed on a multidetector hig h-resolution CT scanner. The patient was scanned without intravenous contrast. Coronal and sagittal reformatted images were obtained from the axial source images. Images were reviewed on a high-resol [employer] PACS workstation. The total exam CTDI equals 16.5 mGy and the total exam DLP equals 1003.2 mGy -cm. One or more of the following dose reduction techniques were used: Automated exposure control. Adjustment of the mA and/or kV according to patient size. Use of iterative reconstruction technique. COMPARISON: None FINDINGS: CT abdomen: The lung bases are clear. The heart size is within limits. There is no significant pericardial effus ion. Hepatic morphology is within normal limits. No gross contour deforming masses. The gallbladder is co ntracted. No evidence of intrahepatic or extrahepatic biliary dilatation. The spleen and pancreas are within normal limits. Both adrenal glands are within normal limits. Both kidneys are normal anatomic position. No gross renal/ureteric calculi. No evidence of obstructi on or hydronephrosis. The visualized GI tract demonstrate normal caliber loops of small and large bowel. No evidence of sepideh wel obstruction. The appendix is within normal limits. The unenhanced aorta is unremarkable. Several shoddy retroperitoneal lymph nodes are noted. CT pelvis: The bladder is within normal limits. The uterus is elongated, containing fluid in the endometrial ca nal. There is a left cystic adnexa measuring 3.8 cm. The rectosigmoid colon demonstrate diverticulos is. No significant free fluid. No significant pelvic lymphadenopathy. The visualized osseous structures, appears to be within normal limits. IMPRESSION: 1. No evidence of acute intra-abdominal/pelvic inflammatory process. No evidence of bowel obstructio n. The appendix is within normal limits. 2. Stool filled loops of large bowel suggestive of constipation. Mild sigmoid diverticulosis. 3. Elongated uterus with fluid within the endometrial canal and 3.8 cm left cystic adnexa. Findings can be physiologic within normal limits. Consider correlation with ultrasound pelvis, if clinically indicated. 4. No free fluid or free air. No gross focal fluid collections. Otherwise, unremarkable unenhanced C T scan of the abdomen/pelvis. RPTAT: AAPP Gabino Arnold, Physician Date Time Electronically viewed and signed by Gabino Arnold Physician on 08/29/2017 22:33 JL/
--- NOTE | 2017-08-29 23:17 | RADRPT ---
AMENDMENT: 08/29/2017 11:18:50 PM Ryamond Cartagena Md COMPARISON: CT abdomen/pelvis August 29, 2017. PROCEDURE: ULTRASOUND PELVIS CLINICAL INDICATION: 36-year-old female with abdominal pain. TECHNIQUE: Multiple sonographic images of the pelvis were obtained utilizing a transabdominal and endovaginal technique. The images were reviewed on a PACS workstation. COMPARISON: None. FINDINGS: The uterus is visualized and measures 9.4 x 4.8 x 6.8 cm. The endometrial echo complex is mildly pro minent and measures 14.2 mm. There is no evidence for free fluid. The right ovary has a normal echot exture and measures 3.4 x 2.2 x 2.3 cm. The left ovary has a normal echotexture and measures 3.7 x 2.5 x 3.1 cm. There is a left ovarian simple cyst measuring 2.6 x 1.8 x 2.6 cm. There is flow identi fied within the ovaries bilaterally. No adnexal masses are noted. IMPRESSION: 1. Left ovarian cyst. 2. Prominent endometrial echo complex. .Raymond Cartagena MD, MD Date Time Electronically viewed and signed by .Raymond Cartagena MD, on 08/29/2017 23:18 .M/
[2017-08-29] MEDS ORDERED: NAPR-260 PO (23:25)
[2017-08-29] MEDS ORDERED: ACET500C5 PO (23:25)
[2017-08-29] MEDS ORDERED: DOCU-144 PO (23:26)
[2017-08-29] MEDS ORDERED: POLY17PO6 PO (23:26)
[2017-08-29 23:51] VITALS: BP 128/78; PULSE 72; RESP 18; TEMP 97.7
== END 2017-08-29 23:53 | disposition home or self-care (01) ==
LOC: FTE 18:41
DX: R10.30 Lower abdominal pain, unspecified (principal); I10 Essential (primary) hypertension; R10.2 Pelvic and perineal pain
CPT/HCPCS: 36415; 74176; 76830; 76856; 80053; 81003; 83690; 85025; 99285; Z7610

== ENCOUNTER 2017-12-07 18:27 | Emergency (ER) | END 2017-12-08 00:23 | disposition home or self-care (01) ==

== ENCOUNTER 2018-02-04 16:40 | Emergency (ER) | END 2018-02-04 19:46 | disposition home or self-care (01) ==

== ENCOUNTER 2018-02-20 03:41 | Emergency (ER) | END 2018-02-20 06:00 | disposition home or self-care (01) ==

== ENCOUNTER 2018-03-16 04:29 | Emergency (ER) | END 2018-03-16 06:03 | disposition left against medical advice (07) ==

== ENCOUNTER 2018-08-15 17:53 | Emergency (ER) | END 2018-08-15 23:49 | disposition left against medical advice (07) ==

== ENCOUNTER 2018-09-24 17:00 | Outpatient (CLI) | END 2018-09-24 18:49 | disposition home or self-care (01) ==

== ENCOUNTER 2018-09-24 18:57 | Emergency (ER) | END 2018-09-24 20:26 | disposition home or self-care (01) ==

== ENCOUNTER 2018-11-28 09:12 | Inpatient (IN) | payer BC ==
[~2018-11-28] VITALS: Ht 163.8 cm; Wt 100.0 kg
[~2018-11-28 09:12] MED LIST changes: +ACET500T98 PO; -ALBU8.5H3 INH; -AZIT250T94 PO; +FERR256T PO; -HYDR-906 PO; +OXYM15MI NASAL; +PNV11TAB PO; -PRED20TA PO; -PROP20TA4 PO
[2018-11-28 10:10] VITALS: Ht 163.8 cm; Wt 100.0 kg
[2018-11-28 10:11] VITALS: BP 136/84; PULSE 68; RESP 20
[2018-11-28] MEDS: LACTATED RINGER'S 1,000 ML IV SCH ×4 (10:30→23:44)
[2018-11-28] MEDS ORDERED: TERBUTALINE 1 MG/ML INJ SC ONE ×2 (10:30→13:30)
[2018-11-28] MEDS ORDERED: LACTATED RINGER'S 500 ML IV ONE (10:30)
--- NOTE | 2018-11-28 13:57 | TRIAGE ---
OB Triage Datetime Report Generated by CPN: 11/28/2018 13:57 Datetime: 11/28/2018 13:35 Stage of : OB Triage Labor Evaluation Frequency: irregular Monitor Mode: External Quality: Mild Pattern: Normal: <= 5 Contractions in 10 Minutes Resting Tone Reddick: Relaxed Contraction Comments: mild irregular Heart Rate FHR Baseline Rate: 140 Monitor Mode: External US FHR Baseline Changes: No Baseline Change Variability: Moderate 6-25 bpm Accelerations: 10X10 Decelerations: None Category: Category I Datetime: 11/28/2018 12:35 Labor Evaluation Frequency: 0 Monitor Mode: External Resting Tone Reddick: Relaxed Contraction Comments: pt reports "not that much pain." Heart Rate FHR Baseline Rate: 145 Monitor Mode: External US Variability: Moderate 6-25 bpm Accelerations: 10X10 Decelerations: None Category: Category I Datetime: 11/28/2018 11:04 Labor Evaluation Frequency: 3-6 Monitor Mode: External Duration (sec)2399: 40-60 Quality: Mild Heart Rate FHR Baseline Rate: 130 Monitor Mode: External US Accelerations: 10X10 Decelerations: None Category: Category I Datetime: 11/28/2018 10:30 Labor Evaluation Frequency: 1-5 Monitor Mode: External Duration (sec)2399: 40-60 Resting Tone Reddick: Relaxed Contraction Comments: abd palpates soft, no ctx's felt, ctx's noted per toco; pt reports "occassio nal" ctx Heart Rate FHR Baseline Rate: 130 Monitor Mode: External US Variability: Moderate 6-25 bpm Accelerations: 10X10 Decelerations: None Category: Category I Datetime: 11/28/2018 09:42 Assessment Type: Triage Maternal Assessment Level of Consciousness: Fully Conscious DTR's/Clonus: DTRs 2+ Headache: Frontal Blurred Vision: No Respiratory Effort: Unlabored Breath Sounds, Left: Clear and Equal Breath Sounds, Right: Clear and Equal Nausea/Vomiting: Denies RUQ Epigastric Pain: Denies Lower Extremities Edema: Left Lower Extremity Degree: None Upper Extremities Edema: None Degree: None Facial Edema: None Fall Risk Assessment History of Falling: (0) No Secondary Diagnosis: (0) No Ambulatory Aid: (0) Bedrest/Nurse Assist IV Therapy: (0) No Gait: (0) Normal/Bedrest/Immobile Mental Status: (0) Oriented to Own Ability Fall Score: 0 Fall Risk Score Definition: No Risk: No action required Datetime: 11/28/2018 09:32 Time of Arrival: 11/28/2018 09:32 EGA: 31.1 Arrived By: Ambulatory; Wheelchair Arrived From: Home Chief Complaint: PAIN IN BACK AND ABD Movement: Present Contractions: Occasional Time Contractions Began: 11/28/2018 02:00 Contractions: TWICE AN HOUR Rupture of Membranes: Denies Vaginal Bleeding: None Vaginal Discharge: Denies Recent Sexual Intercouse: Denies Abdominal Trauma: Not Applicable Patient Complaints: Contractions Time Provider Notified: 11/28/2018 10:30 Provider Notified: DR CARBONE Initial Plan: NST BPP KAREN EFW CBC CMP UA Datetime: 09/24/2018 17:12 Fall Score: 0 Fall Risk Score Definition: No Risk: No action required Datetime: 09/24/2018 17:06 EGA: 21.6 Patient Complaints: Other
[2018-11-28] MEDS ORDERED: MAGNESIUM SULFATE 4 GM/100 ML 100 ML ONE (14:11)
[2018-11-28] MEDS ORDERED: MAGNESIUM SULFATE 20 GM/500 ML 500 ML IV ONE (14:11)
[2018-11-28] MEDS ORDERED: MAGNESIUM SULFATE 4 GM/100 ML 100 ML IV ONE (14:30)
[2018-11-28] MEDS: MAGNESIUM SULFATE 20 GM/500 ML 500 ML IV SCH ×2 (14:54→23:41)
[2018-11-28] MEDS: BETAMET NA PHOS/AC(6 MG/ML) 2 ML INJ SYG IM SCH (16:19)
[2018-11-28] MEDS ORDERED: ACETAMINOPHEN 325 MG TAB PO PRN (23:00)
[2018-11-29] MEDS: FERROUS SULFATE (EC) 325 MG TAB PO SCH (09:23)
[2018-11-29] MEDS: PRENATAL VITAMIN PO SCH (09:23)
[2018-11-29] MEDS: MAGNESIUM SULFATE 20 GM/500 ML 500 ML IV SCH (10:34)
[2018-11-29] MEDS: BETAMET NA PHOS/AC(6 MG/ML) 2 ML INJ SYG IM SCH (15:30)
[2018-11-29] MEDS ORDERED: KETOROLAC 30 MG INJ ONE (22:41)
--- NOTE | 2018-11-30 01:29 | CONS ---
DATE OF ADMISSION: 11/28/2018 DATE OF CONSULTATION: 11/29/2018 HISTORY OF PRESENT ILLNESS: She is a 38-year-old multigravida presented with abdominal pain. She wa s found to have contractions. She received 2 shots of terbutaline and continued to have mild contrac tions. Subsequently, she was placed on magnesium sulfate and betamethasone was started. Cervical le ngth was 3.6 cm per report. OBSTETRIC HISTORY: Not significant. No premature deliveries and no C-sections. PAST SURGICAL HISTORY: None. REVIEW OF SYSTEMS: Negative except what was mentioned above. PHYSICAL EXAMINATION: VITAL SIGNS: Blood pressure was normal. Physical examination deferred. heart tones are reassuring for gestational age, currently no co ntractions. IMPRESSION: Intrauterine at 31 weeks with contractions, not responding to terbutal ine, currently on magnesium, which she responded very well and she is comfortable, status post betame thasone x1. Her primary quantitative strategy analyst stopped the magnesium today at noon. I was not involved in the decision. She is to receive the second dose of betamethasone this afternoon. RECOMMENDATIONS: Continue monitoring the patient until tomorrow morning. If there is no evidence of contraction and if her cervical length is above 2.5 cm, she can be discharged home with followup out patient with perinatology for transvaginal cervical length in 1 or 2 weeks. labor precaution s. 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 She was advised to drink a lot of water and avoid juice, soda, coffee or tea. Dictated By: FADY DE GUZMAN MD ST/NTS Conf#: [id number] DID#: [id number] CC: DEE DEE GORDON MD; MYRA CARBONE MD;*EndCC*
[2018-11-30] MEDS: PRENATAL VITAMIN PO SCH (09:08)
[2018-11-30] MEDS: FERROUS SULFATE (EC) 325 MG TAB PO SCH (09:08)
--- NOTE | 2018-12-03 16:16 | PREOPHP ---
DATE OF ADMISSION: 11/28/2018 HISTORY OF PRESENT ILLNESS: This is a 38-year-old lady, 5, para 3, EDC 01/29/2019, at 31 and 3/7 weeks, admitted to labor and delivery area because of labor. She started to have contra ctions about a few hours prior to admission and got worse up to the time of admission. [facility] in my [place] office, only 3 times and at that time, the care was uneventful. PAST PERSONAL HISTORY: No history of diabetes, TB, asthma. ALLERGIES: NO ALLERGIES. SOCIAL HISTORY: The patient does not smoke. She does not drink. MEDICATIONS: She does not take any drugs except her iron and vitamins. GYNECOLOGIC HISTORY: She had menarche at the age of 11, every 28 days interval, 3 to 4 days duration , and moderate in amount. FAMILY HISTORY: Father has diabetes, hypertension and heart disease. She is 5, para 3. Her first delivery was in 2000, second 2002, third 2005, all by normal delivery at [facility]. As mentioned, father has a history of diabetes, hypertension and heart disease. REVIEW OF SYSTEMS: CARDIOVASCULAR: No chest pains. RESPIRATORY: No cough. GASTROINTESTINAL: No diarrhea, no vomiting. GENITOURINARY: No dysuria. PHYSICAL EXAMINATION: GENERAL: Reveals a conscious, coherent lady, in not acute distress. VITAL SIGNS: Her blood pressure 120/80, pulse rate 80 per minute, respirations 16 per minute. BREASTS, HEART AND LUNGS: Within normal limits. ABDOMEN: Soft. No tenderness noted. Fundic height 30 cm. heart tones 140 per minute. PELVIC: Revealed the cervix to be closed, station floating in cephalic presentation with the bag of water intact. EXTREMITIES: No pedal edema. ADMITTING DIAGNOSIS: A 31 and 3/7 weeks intrauterine , rule out UTI, rule out labor . The plans were explained to the patient and she understood everything totally. The risks, benefit s, and alternatives were discussed with her as well. The patient was given terbutaline x2 and the co ntractions still persisted, so she was put on magnesium sulfate and then she was also given betametha sone. As mentioned, the plans were explained to the patient and she understood everything totally. Dictated By: MYRA AKBAR/NTS Conf#: [id number] [facility]#: [id number]
--- NOTE | 2018-12-03 18:16 | PN ---
DATE: 11/29/2018 TIME: 2:00 pm. SUBJECTIVE: The patient feels good, does not feel to have any contractions and she does not feel any pain at all. OBJECTIVE: VITAL SIGNS: She is afebrile. Vital signs stable. ABDOMEN: Soft. No tenderness noted. No vaginal bleeding. EXTREMITIES: No calf tenderness. ASSESSMENT: 31 and 4/7 weeks intrauterine with resulting labor. PLAN: She was given betamethasone and she will get the second dose of betamethasone and then she was on magnesium sulfate. Dr. Nolen advised the patient to stay without the magnesium sulphate and to b e observed until tomorrow 11/30/2018. The plans were explained to the patient and she understood brooke rything totally. So she is going to go home tomorrow 11/30/[address] Nolen. Dictated By: MYRA AKBAR/AGNIESZKA Conf#: [id number] DID#: [id number]
--- NOTE | 2018-12-03 20:45 | DS ---
DATE OF ADMISSION: 11/28/2018 DATE OF DISCHARGE: 11/30/2018 HISTORY OF PRESENT ILLNESS: See dictated history and physical. PHYSICAL EXAMINATION: See dictated history and physical. ADMITTING DIAGNOSIS: 31 and 3/7 weeks intrauterine with labor. HOSPITAL COURSE: The patient was observed in the hospital. She was given terbutaline x2 and she was started on magnesium sulfate. She received 24 hours of magnesium sulfate, terbutaline x2 and she re ceived betamethasone two doses every 24 hours. She was discharged to home on 11/30/2018 on the day of observation per Dr. Nolen. She did not have any pain, no vaginal bleeding. She felt good a nd she was discharged to home in good and stable condition on general diet and the activity was restr icted. She was counseled. She was instructed and then she was told to come back to the clinic in on week. FINAL DIAGNOSIS: 31 and 5/7 weeks intrauterine , resolved labor, and advanced mater nal age. Dictated By: MYRA AKBAR/AGNIESZKA Conf#: [id number] DID#: [id number]
== END 2018-11-30 11:24 | disposition home or self-care (01) | DRG 833 ==
LOC: OBT 09:12 → L-D 09:12 → OBT 13:40
PROVIDERS: ADMIT Obstetrics & Gynecology; ATTEND Obstetrics & Gynecology
DX: O47.03 False labor before 37 completed weeks of gestation, third trimester (principal); Z3A.31 31 weeks gestation of pregnancy
CPT/HCPCS: 36415; 76815; 76817; 76818; 80053; 81001; 83735; 85025; 87086; 87340; 96360; 96361; 96372; G0463; J0702; J1885; J3105; J3475; J7120

== ENCOUNTER 2018-12-11 02:25 | Inpatient (IN) | payer BC ==
[~2018-12-11] VITALS: Ht 162.6 cm; Wt 99.4 kg
[~2018-12-11 02:25] MED LIST changes: -ACET500T98 PO; -OXYM15MI NASAL
[2018-12-11 02:38] VITALS: Ht 162.6 cm; Wt 99.4 kg
--- NOTE | 2018-12-11 03:30 | TRIAGE ---
OB Triage Datetime Report Generated by CPN: 12/11/2018 03:29 Datetime: 12/11/2018 03:11 Labor Evaluation Frequency: OCC Monitor Mode: External Pattern: Normal: <= 5 Contractions in 10 Minutes Contraction Comments: SUBTLE UC'S Heart Rate FHR Baseline Rate: 140 Monitor Mode: External US FHR Baseline Changes: No Baseline Change Variability: Moderate 6-25 bpm Accelerations: 10X10 Comments: NST COMPLETED Datetime: 12/11/2018 02:34 Stage of : OB Triage Assessment Type: Triage Maternal Assessment Level of Consciousness: Fully Conscious Headache: Denies Blurred Vision: No Respiratory Effort: Unlabored; Regular Rhythm; Equal Expansion Nausea/Vomiting: Denies RUQ Epigastric Pain: Denies Facial Edema: None Fall Risk Assessment History of Falling: (0) No Secondary Diagnosis: (0) No Ambulatory Aid: (0) Bedrest/Nurse Assist IV Therapy: (0) No Gait: (0) Normal/Bedrest/Immobile Mental Status: (0) Oriented to Own Ability Fall Score: 0 Fall Risk Score Definition: No Risk: No action required Monitor Mode: Palpation Resting Tone [place]: Relaxed Monitor Mode: External US Datetime: 12/11/2018 02:20 Time of Arrival: 12/11/2018 02:20 EGA: 33.0 Arrived By: Ambulatory Arrived From: Home Chief Complaint: 'BLADDER' INFECTION Movement: Present Contractions: Occasional Rupture of Membranes: Denies Vaginal Bleeding: None Vaginal Discharge: Denies Recent Sexual Intercouse: Denies Abdominal Trauma: Not Applicable Patient Complaints: Urinary Frequency Initial Plan: EFM, CALL OB Datetime: 11/30/2018 11:24 Stage of : Antepartum Datetime: 11/30/2018 11:07 Stage of : Antepartum Datetime: 11/30/2018 10:20 Stage of : Antepartum Labor Evaluation Frequency: 0 Monitor Mode: External Heart Rate FHR Baseline Rate: 140 Monitor Mode: External US FHR Baseline Changes: No Baseline Change Variability: Moderate 6-25 bpm Accelerations: 15X15 Decelerations: None Datetime: 11/30/2018 10:00 Maternal Assessment Level of Consciousness: Fully Conscious Labor Evaluation Frequency: x1 Monitor Mode: External Quality: Mild Pattern: Normal: <= 5 Contractions in 10 Minutes Resting Tone [place]: Relaxed Heart Rate FHR Baseline Rate: 130 Monitor Mode: External US FHR Baseline Changes: No Baseline Change Variability: Moderate 6-25 bpm Accelerations: 15X15 Decelerations: None Pain Assessment Pain Scale: 0 Pain Presence: None/Denies Pain Type: N/A Datetime: 11/30/2018 09:11 Stage of : Antepartum Temperature Route: Oral Monitor Mode: External US Comments: NST STARTED Datetime: 11/30/2018 09:00 Maternal Assessment Level of Consciousness: Fully Conscious Labor Evaluation Frequency: x1 Monitor Mode: External Quality: Mild Pattern: Normal: <= 5 Contractions in 10 Minutes Resting Tone [place]: Relaxed Pain Assessment Pain Scale: 0 Pain Presence: None/Denies Pain Type: N/A Datetime: 11/30/2018 08:00 Assessment Type: Ongoing Assessment Maternal Assessment Level of Consciousness: Fully Conscious DTR's/Clonus: DTRs 2+; No Clonus Headache: Denies Blurred Vision: No Respiratory Effort: Unlabored; Regular Rhythm; Equal Expansion Breath Sounds, Left: Clear and Equal Breath Sounds, Right: Clear and Equal Nausea/Vomiting: Denies RUQ Epigastric Pain: Denies Lower Extremities Edema: Left Lower Extremity Degree: 1+ Upper Extremities Edema: None Degree: None Facial Edema: None Fall Risk Assessment History of Falling: (0) No Secondary Diagnosis: (0) No Ambulatory Aid: (0) Bedrest/Nurse Assist IV Therapy: (0) No Gait: (0) Normal/Bedrest/Immobile Mental Status: (0) Oriented to Own Ability Fall Score: 0 Fall Risk Score Definition: No Risk: No action required Comment: Monitor Mode: External Quality: Mild Pattern: Normal: <= 5 Contractions in 10 Minutes Resting Tone [place]: Relaxed Pain Assessment Pain Scale: 0 Pain Presence: None/Denies Pain Type: N/A Datetime: 11/30/2018 07:04 Monitor Mode: External Quality: Mild Pattern: Normal: <= 5 Contractions in 10 Minutes Resting Tone [place]: Relaxed Pain Assessment Pain Scale: 0 Pain Presence: None/Denies Pain Type: N/A Datetime: 11/30/2018 06:06 Stage of : Antepartum Maternal Assessment Level of Consciousness: Fully Conscious Headache: Denies Blurred Vision: No Nausea/Vomiting: Denies RUQ Epigastric Pain: Denies Facial Edema: None Monitor Mode: External Resting Tone [place]: Relaxed Pain Assessment Pain Scale: 0 Pain Presence: None/Denies Pain Type: N/A Datetime: 11/30/2018 05:01 Stage of : Antepartum Labor Evaluation Frequency: 0 Monitor Mode: External Quality: Mild Pattern: Normal: <= 5 Contractions in 10 Minutes Resting Tone [place]: Relaxed Datetime: 11/30/2018 03:58 Stage of : Antepartum Labor Evaluation Frequency: 0 Monitor Mode: External Quality: Mild Pattern: Normal: <= 5 Contractions in 10 Minutes Resting Tone [place]: Relaxed Datetime: 11/30/2018 02:59 Monitor Mode: External Pattern: Normal: <= 5 Contractions in 10 Minutes Resting Tone [place]: Relaxed Datetime: 11/30/2018 02:00 Stage of : Antepartum Labor Evaluation Frequency: 0 Monitor Mode: External Quality: Mild Pattern: Normal: <= 5 Contractions in 10 Minutes Resting Tone [place]: Relaxed Pain Assessment Pain Scale: 0 Pain Presence: None/Denies Pain Type: N/A Datetime: 11/30/2018 00:29 Monitor Mode: External Quality: Mild Pattern: Normal: <= 5 Contractions in 10 Minutes Resting Tone [place]: Relaxed Datetime: 11/29/2018 23:47 Stage of : Antepartum Labor Evaluation Frequency: 2-15 Monitor Mode: External Duration (sec)2399: 20-50 Quality: Mild Pattern: Normal: <= 5 Contractions in 10 Minutes Resting Tone [place]: Relaxed Pain Assessment Pain Scale: 0 Pain Presence: None/Denies Pain Type: N/A Datetime: 11/29/2018 22:50 Labor Evaluation Frequency: 2-15 Monitor Mode: External Duration (sec)2399: 20-40 Quality: Mild Pattern: Normal: <= 5 Contractions in 10 Minutes Resting Tone [place]: Relaxed Pain Assessment Pain Scale: 0 Pain Presence: None/Denies Pain Type: N/A Datetime: 11/29/2018 22:01 Monitor Mode: External US Datetime: 11/29/2018 20:49 Stage of : Antepartum Labor Evaluation Frequency: 2-6 Monitor Mode: External Duration (sec)2399: 20-40 Quality: Mild Pattern: Normal: <= 5 Contractions in 10 Minutes Resting Tone [place]: Relaxed Pain Assessment Pain Scale: 0 Pain Presence: None/Denies Pain Type: N/A Datetime: 11/29/2018 20:02 Stage of : Antepartum Heart Rate FHR Baseline Rate: 140 Monitor Mode: External US FHR Baseline Changes: No Baseline Change Variability: Moderate 6-25 bpm Accelerations: 15X15 Decelerations: None Category: Category I Comments: u/s reoved per order. NST reactive Datetime: 11/29/2018 19:33 Stage of : Antepartum Assessment Type: Ongoing Assessment Maternal Assessment Level of Consciousness: Fully Conscious DTR's/Clonus: DTRs 2+; No Clonus Headache: Denies Blurred Vision: No Respiratory Effort: Unlabored; Regular Rhythm; Equal Expansion Breath Sounds, Left: Clear and Equal Breath Sounds, Right: Clear and Equal Nausea/Vomiting: Denies RUQ Epigastric Pain: Denies Lower Extremities Edema: Left Lower Extremity Degree: 1+ Upper Extremities Edema: None Degree: None Facial Edema: None Fall Risk Assessment History of Falling: (0) No Secondary Diagnosis: (0) No Ambulatory Aid: (0) Bedrest/Nurse Assist IV Therapy: (0) No Gait: (0) Normal/Bedrest/Immobile Mental Status: (0) Oriented to Own Ability Fall Score: 0 Fall Risk Score Definition: No Risk: No action required Comment: Monitor Mode: External Quality: Mild Pattern: Normal: <= 5 Contractions in 10 Minutes Resting Tone [place]: Relaxed Heart Rate FHR Baseline Rate: 150 Monitor Mode: External US Pain Assessment Pain Scale: 0 Pain Presence: None/Denies Pain Type: N/A Datetime: 11/29/2018 19:00 Stage of : Antepartum Maternal Assessment Level of Consciousness: Fully Conscious Labor Evaluation Frequency: 1uc/hr Monitor Mode: External Duration (sec)2399: 30 Quality: Mild Resting Tone [place]: Relaxed Monitor Mode: ORDERS FOR LIMITED MONITORING Pain Assessment Pain Scale: 0 Pain Goal: 3 Vaginal Exam Membrane Status: Intact Vaginal Bleeding: None Datetime: 11/29/2018 18:00 Stage of : Antepartum Maternal Assessment Level of Consciousness: Fully Conscious Labor Evaluation Frequency: 0 Monitor Mode: External Resting Tone [place]: Relaxed Monitor Mode: ORDERS FOR LIMITED MONITORING Pain Assessment Pain Scale: 0 Pain Goal: 3 Vaginal Exam Membrane Status: Intact Vaginal Bleeding: None Datetime: 11/29/2018 17:00 Stage of : Antepartum Maternal Assessment Level of Consciousness: Fully Conscious Labor Evaluation Frequency: 1UC/HR Monitor Mode: External Duration (sec)2399: 70 Quality: Mild Resting Tone [place]: Relaxed Monitor Mode: ORDERS FOR LIMITED MONITORING Pain Assessment Pain Scale: 0 Pain Goal: 3 Vaginal Exam Membrane Status: Intact Vaginal Bleeding: None Datetime: 11/29/2018 16:46 Stage of : Antepartum Temperature Route: Oral Datetime: 11/29/2018 16:00 Stage of : Antepartum Maternal Assessment Level of Consciousness: Fully Conscious Labor Evaluation Frequency: 2UC/HR Monitor Mode: External Duration (sec)2399: 30-50 Quality: Mild Resting Tone [place]: Relaxed Monitor Mode: ORDERS FOR LIMITED MONITORING Pain Assessment Pain Scale: 0 Pain Goal: 3 Vaginal Exam Membrane Status: Intact Vaginal Bleeding: None Datetime: 11/29/2018 15:00 Stage of : Antepartum Maternal Assessment Level of Consciousness: Fully Conscious Labor Evaluation Frequency: 1UC/HR Monitor Mode: External Duration (sec)2399: 80 Quality: Mild Resting Tone [place]: Relaxed Monitor Mode: ORDERS FOR LIMITED MONITORING Pain Assessment Pain Scale: 0 Pain Goal: 3 Vaginal Exam Membrane Status: Intact Vaginal Bleeding: None Datetime: 11/29/2018 14:00 Stage of : Antepartum Maternal Assessment Level of Consciousness: Fully Conscious Labor Evaluation Frequency: 1UC/HR Monitor Mode: External Duration (sec)2399: 50 Quality: Mild Resting Tone [place]: Relaxed Monitor Mode: ORDERS FOR LIMITED MONITORING Pain Assessment Pain Scale: 0 Pain Goal: 3 Vaginal Exam Membrane Status: Intact Vaginal Bleeding: None Datetime: 11/29/2018 13:00 Stage of : Antepartum Maternal Assessment Level of Consciousness: Fully Conscious Labor Evaluation Frequency: 1UC/HR Monitor Mode: External Duration (sec)2399: 60 Quality: Mild Resting Tone [place]: Relaxed Heart Rate FHR Baseline Rate: 130 Monitor Mode: External US Variability: Moderate 6-25 bpm Accelerations: 15X15 Decelerations: None Category: Category I Pain Assessment Pain Scale: 0 Pain Goal: 3 Vaginal Exam Membrane Status: Intact Vaginal Bleeding: None Datetime: 11/29/2018 12:00 Stage of : Antepartum Maternal Assessment Level of Consciousness: Fully Conscious DTR's/Clonus: DTRs 2+; No Clonus Headache: Frontal Breath Sounds, Left: Clear and Equal Breath Sounds, Right: Clear and Equal Nausea/Vomiting: Denies RUQ Epigastric Pain: Denies Labor Evaluation Frequency: 1UC/HR Monitor Mode: External Duration (sec)2399: 40 Quality: Mild Resting Tone [place]: Relaxed Heart Rate FHR Baseline Rate: 125 Monitor Mode: External US Variability: Moderate 6-25 bpm Accelerations: 15X15 Decelerations: None Category: Category I Pain Assessment Pain Scale: 0 Pain Goal: 3 Vaginal Exam Membrane Status: Intact Vaginal Bleeding: None Datetime: 11/29/2018 11:49 Temperature Route: Oral Datetime: 11/29/2018 11:00 Stage of : Antepartum Maternal Assessment Level of Consciousness: Fully Conscious Labor Evaluation Frequency: 2UC/HR Monitor Mode: External Duration (sec)2399: 50-60 Quality: Mild Resting Tone [place]: Relaxed Heart Rate FHR Baseline Rate: 125 Monitor Mode: External US Variability: Moderate 6-25 bpm Accelerations: 15X15 Decelerations: None Category: Category I Pain Assessment Pain Scale: 0 Pain Goal: 3 Vaginal Exam Membrane Status: Intact Vaginal Bleeding: None Datetime: 11/29/2018 10:00 Stage of : Antepartum Maternal Assessment Level of Consciousness: Fully Conscious DTR's/Clonus: DTRs 2+; No Clonus Headache: Denies Breath Sounds, Left: Clear and Equal Breath Sounds, Right: Clear and Equal Nausea/Vomiting: Denies RUQ Epigastric Pain: Denies Labor Evaluation Frequency: NONE Monitor Mode: External Resting Tone [place]: Relaxed Heart Rate FHR Baseline Rate: 135 Monitor Mode: External US Variability: Moderate 6-25 bpm Accelerations: 15X15 Decelerations: None Category: Category I Pain Assessment Pain Scale: 0 Pain Goal: 3 Vaginal Exam Membrane Status: Intact Vaginal Bleeding: None Datetime: 11/29/2018 09:00 Stage of : Antepartum Maternal Assessment Level of Consciousness: Fully Conscious Labor Evaluation Frequency: 1UC/HR Monitor Mode: External Duration (sec)2399: 50 Quality: Mild Resting Tone [place]: Relaxed Heart Rate FHR Baseline Rate: 135 Monitor Mode: External US Variability: Moderate 6-25 bpm Accelerations: 15X15 Decelerations: None Category: Category I Pain Assessment Pain Scale: 0 Pain Goal: 3 Vaginal Exam Membrane Status: Intact Vaginal Bleeding: None Datetime: 11/29/2018 08:00 Stage of : Antepartum Maternal Assessment Level of Consciousness: Fully Conscious DTR's/Clonus: DTRs 2+; No Clonus Headache: Denies Breath Sounds, Left: Clear and Equal Breath Sounds, Right: Clear and Equal Nausea/Vomiting: Denies RUQ Epigastric Pain: Denies Labor Evaluation Frequency: 1UC/HR Monitor Mode: External Duration (sec)2399: 60 Quality: Mild Resting Tone [place]: Relaxed Heart Rate FHR Baseline Rate: 135 Monitor Mode: External US Variability: Moderate 6-25 bpm Accelerations: 15X15 Decelerations: None Category: Category I Pain Assessment Pain Scale: 0 Pain Goal: 3 Vaginal Exam Membrane Status: Intact Vaginal Bleeding: None Datetime: 11/29/2018 07:21 Stage of : Antepartum Assessment Type: Ongoing Assessment Maternal Assessment Level of Consciousness: Fully Conscious DTR's/Clonus: DTRs 2+ Headache: Occipital Blurred Vision: No Respiratory Effort: Unlabored; Regular Rhythm; Equal Expansion Breath Sounds, Left: Clear and Equal Breath Sounds, Right: Clear and Equal Nausea/Vomiting: Denies RUQ Epigastric Pain: Denies Lower Extremities Edema: None Degree: None Upper Extremities Edema: None Degree: None Facial Edema: None Fall Risk Assessment History of Falling: (0) No Secondary Diagnosis: (0) No Ambulatory Aid: (0) Bedrest/Nurse Assist IV Therapy: (20) Yes Gait: (0) Normal/Bedrest/Immobile Mental Status: (0) Oriented to Own Ability Fall Score: 20 Fall Risk Score Definition: No Risk: No action required Datetime: 11/29/2018 07:12 Stage of : Antepartum Datetime: 11/29/2018 06:32 Stage of : Antepartum Maternal Assessment Level of Consciousness: Fully Conscious Labor Evaluation Frequency: OCC Monitor Mode: External Quality: Mild Pattern: Normal: <= 5 Contractions in 10 Minutes Resting Tone [place]: Relaxed Heart Rate FHR Baseline Rate: 130 Monitor Mode: External US FHR Baseline Changes: No Baseline Change Variability: Moderate 6-25 bpm Accelerations: 15X15 Decelerations: None Pain Presence: None/Denies Pain Type: Pressure Pain Relief Measures: Comfort Measures Datetime: 11/29/2018 05:28 Stage of : Antepartum Maternal Assessment Level of Consciousness: Fully Conscious Labor Evaluation Frequency: OCC Monitor Mode: External Quality: Mild Pattern: Normal: <= 5 Contractions in 10 Minutes Resting Tone [place]: Relaxed Contraction Comments: Pt went back to sleep after using BR Heart Rate FHR Baseline Rate: 125 Monitor Mode: External US FHR Baseline Changes: No Baseline Change Variability: Moderate 6-25 bpm Accelerations: 15X15 Decelerations: None Pain Presence: None/Denies Pain Type: Pressure Pain Relief Measures: Comfort Measures Datetime: 11/29/2018 04:22 Stage of : Antepartum Maternal Assessment Level of Consciousness: Fully Conscious Temperature Route: Oral Labor Evaluation Frequency: OCC Monitor Mode: External Quality: Mild Pattern: Normal: <= 5 Contractions in 10 Minutes Resting Tone [place]: Relaxed Heart Rate FHR Baseline Rate: 125 Monitor Mode: External US FHR Baseline Changes: No Baseline Change Variability: Moderate 6-25 bpm Accelerations: 15X15 Decelerations: None Pain Presence: None/Denies Pain Type: Pressure Pain Relief Measures: Comfort Measures Datetime: 11/29/2018 03:48 Stage of : Antepartum Maternal Assessment Level of Consciousness: Fully Conscious Temperature Route: Oral Labor Evaluation Frequency: OCC Monitor Mode: External Quality: Mild Pattern: Normal: <= 5 Contractions in 10 Minutes Resting Tone [place]: Relaxed Heart Rate FHR Baseline Rate: 130 Monitor Mode: External US FHR Baseline Changes: No Baseline Change Variability: Moderate 6-25 bpm Accelerations: 15X15 Decelerations: None Pain Presence: None/Denies Pain Type: Pressure Pain Relief Measures: Comfort Measures Datetime: 11/29/2018 02:22 Stage of : Antepartum Maternal Assessment Level of Consciousness: Fully Conscious Labor Evaluation Frequency: OCC Monitor Mode: External Quality: Mild Pattern: Normal: <= 5 Contractions in 10 Minutes Resting Tone [place]: Relaxed Heart Rate FHR Baseline Rate: 130 Monitor Mode: External US FHR Baseline Changes: No Baseline Change Variability: Moderate 6-25 bpm Accelerations: 15X15 Decelerations: None Pain Presence: None/Denies Pain Relief Measures: Comfort Measures Datetime: 11/29/2018 01:28 Stage of : Antepartum Maternal Assessment Level of Consciousness: Fully Conscious Labor Evaluation Frequency: OCC Monitor Mode: External Quality: Mild Pattern: Normal: <= 5 Contractions in 10 Minutes Resting Tone [place]: Relaxed Heart Rate FHR Baseline Rate: 130 Monitor Mode: External US FHR Baseline Changes: No Baseline Change Variability: Moderate 6-25 bpm Accelerations: 15X15 Decelerations: None Pain Presence: None/Denies Pain Assessment Comments: Sleeping Datetime: 11/29/2018 00:30 Stage of : Antepartum Maternal Assessment Level of Consciousness: Fully Conscious Labor Evaluation Frequency: OCC Monitor Mode: External Quality: Mild Pattern: Normal: <= 5 Contractions in 10 Minutes Resting Tone [place]: Relaxed Heart Rate FHR Baseline Rate: 130 Monitor Mode: External US FHR Baseline Changes: No Baseline Change Variability: Moderate 6-25 bpm Accelerations: 15X15 Decelerations: None Pain Assessment Pain Scale: 0 Pain Presence: Intermittent Pain Type: Pressure Pain Location: Abdomen; Head Pain Goal: 2 Pain Relief Measures: Comfort Measures Datetime: 11/28/2018 23:44 Stage of : Antepartum (Annotations: Data stored by [facility] on behalf of user) Stage of : Antepartum Datetime: 11/28/2018 23:30 Stage of : Antepartum Maternal Assessment Level of Consciousness: Fully Conscious DTR's/Clonus: DTRs 2+ Headache: Occipital Labor Evaluation Frequency: OCC Monitor Mode: External Quality: Mild Pattern: Normal: <= 5 Contractions in 10 Minutes Resting Tone [place]: Relaxed Heart Rate FHR Baseline Rate: 130 Monitor Mode: External US FHR Baseline Changes: No Baseline Change Variability: Moderate 6-25 bpm Accelerations: 15X15 Decelerations: None Pain Assessment Pain Scale: 3 Pain Presence: Intermittent Pain Type: Pressure Pain Location: Abdomen; Head Pain Goal: 2 Pain Relief Measures: Comfort Measures Datetime: 11/28/2018 22:45 Stage of : Antepartum Datetime: 11/28/2018 22:22 Stage of : Antepartum Maternal Assessment Level of Consciousness: Fully Conscious DTR's/Clonus: DTRs 2+ Headache: Occipital Labor Evaluation Frequency: OCC Monitor Mode: External Quality: Mild Pattern: Normal: <= 5 Contractions in 10 Minutes Resting Tone [place]: Relaxed Heart Rate FHR Baseline Rate: 130 Monitor Mode: External US FHR Baseline Changes: No Baseline Change Variability: Moderate 6-25 bpm Accelerations: 15X15 Decelerations: None Pain Assessment Pain Scale: 5 Pain Presence: Intermittent Pain Type: Pressure Pain Location: Abdomen; Head Pain Goal: 2 Pain Relief Measures: Comfort Measures Datetime: 11/28/2018 21:30 Stage of : Antepartum Maternal Assessment Level of Consciousness: Fully Conscious DTR's/Clonus: DTRs 2+ Headache: Occipital Labor Evaluation Frequency: OCC Monitor Mode: External Quality: Mild Pattern: Normal: <= 5 Contractions in 10 Minutes Resting Tone [place]: Relaxed Heart Rate FHR Baseline Rate: 130 Monitor Mode: External US FHR Baseline Changes: No Baseline Change Variability: Moderate 6-25 bpm Accelerations: 15X15 Decelerations: None Pain Assessment Pain Scale: 5 Pain Presence: Intermittent Pain Type: Pressure Pain Location: Abdomen; Head Pain Goal: 2 Pain Relief Measures: Comfort Measures Pain Assessment Comments: Headache Datetime: 11/28/2018 20:50 Stage of : Antepartum Datetime: 11/28/2018 20:30 Stage of : Antepartum Maternal Assessment Level of Consciousness: Fully Conscious DTR's/Clonus: DTRs 2+ Headache: Occipital Labor Evaluation Frequency: OCC Monitor Mode: External Quality: Mild Pattern: Normal: <= 5 Contractions in 10 Minutes Resting Tone [place]: Relaxed Heart Rate FHR Baseline Rate: 135 Monitor Mode: External US FHR Baseline Changes: No Baseline Change Variability: Moderate 6-25 bpm Accelerations: 15X15 Decelerations: None Pain Presence: Intermittent Pain Type: Pressure Pain Location: Abdomen; Head Pain Relief Measures: Comfort Measures Pain Assessment Comments: Family at bedside, pt. seems relaxed. Datetime: 11/28/2018 20:24 Stage of : Antepartum Datetime: 11/28/2018 19:27 Stage of : Antepartum Assessment Type: Ongoing Assessment Maternal Assessment Level of Consciousness: Fully Conscious Maternal Assessment Level of Consciousness: Fully Conscious DTR's/Clonus: DTRs 2+ Headache: Occipital Blurred Vision: No Respiratory Effort: Unlabored; Regular Rhythm; Equal Expansion Breath Sounds, Left: Clear and Equal Breath Sounds, Right: Clear and Equal Nausea/Vomiting: Denies RUQ Epigastric Pain: Denies Lower Extremities Edema: None Upper Extremities Edema: None Facial Edema: None Temperature Route: Oral Fall Risk Assessment History of Falling: (0) No Secondary Diagnosis: (0) No Ambulatory Aid: (0) Bedrest/Nurse Assist IV Therapy: (20) Yes Gait: (0) Normal/Bedrest/Immobile Mental Status: (0) Oriented to Own Ability Fall Score: 20 Fall Risk Score Definition: No Risk: No action required Labor Evaluation Frequency: OCC Monitor Mode: External Quality: Mild Pattern: Normal: <= 5 Contractions in 10 Minutes Resting Tone [place]: Relaxed Heart Rate FHR Baseline Rate: 135 Monitor Mode: External US FHR Baseline Changes: No Baseline Change Variability: Moderate 6-25 bpm Accelerations: 15X15 Decelerations: None Pain Presence: Intermittent Pain Type: Pressure Pain Location: Abdomen Pain Relief Measures: Comfort Measures Datetime: 11/28/2018 19:00 Labor Evaluation Frequency: OCC Monitor Mode: External Quality: Mild Pattern: Normal: <= 5 Contractions in 10 Minutes Resting Tone [place]: Relaxed Heart Rate FHR Baseline Rate: 135 Monitor Mode: External US FHR Baseline Changes: No Baseline Change Variability: Moderate 6-25 bpm Accelerations: 15X15 Decelerations: None Category: Category I Pain Presence: Intermittent Pain Type: Pressure Pain Location: Abdomen Pain Relief Measures: Comfort Measures Pain Assessment Comments: Pt states she feels pressure, denies pain Datetime: 11/28/2018 18:02 DTR's/Clonus: DTRs 2+ Labor Evaluation Frequency: 5-9 Monitor Mode: External Duration (sec)2399: 50-80 Quality: Mild Pattern: Normal: <= 5 Contractions in 10 Minutes Resting Tone [place]: Relaxed Heart Rate FHR Baseline Rate: 150 Monitor Mode: External US FHR Baseline Changes: No Baseline Change Variability: Minimal - Undetectable to <=5 bpm Accelerations: 15X15 Decelerations: None Comments: FHR appropriate for [place] Pain Presence: Intermittent Pain Type: Pressure Pain Location: Back Pain Relief Measures: Comfort Measures Pain Assessment Comments: Pt states feeling pressure with UC, denies pain Datetime: 11/28/2018 17:02 Labor Evaluation Frequency: 2-6 Monitor Mode: External Duration (sec)2399: 50-80 Quality: Mild Pattern: Normal: <= 5 Contractions in 10 Minutes Resting Tone [place]: Relaxed Heart Rate FHR Baseline Rate: 145 Monitor Mode: External US FHR Baseline Changes: No Baseline Change Variability: Moderate 6-25 bpm Accelerations: 15X15 Decelerations: None Category: Category I Pain Presence: Intermittent Pain Type: Pressure Pain Location: Abdomen Pain Relief Measures: Comfort Measures Pain Assessment Comments: Pt states she feels some pressure/tightening with UC, denies pain Datetime: 11/28/2018 16:00 DTR's/Clonus: DTRs 2+ Breath Sounds, Left: Clear and Equal Breath Sounds, Right: Clear and Equal Monitor Mode: External Resting Tone [place]: Relaxed Heart Rate FHR Baseline Rate: 150 Monitor Mode: External US FHR Baseline Changes: No Baseline Change Variability: Moderate 6-25 bpm Accelerations: 15X15 Decelerations: None Category: Category I Pain Presence: None/Denies Datetime: 11/28/2018 14:30 Labor Evaluation Frequency: Irregular Monitor Mode: External Quality: Mild Pattern: Normal: <= 5 Contractions in 10 Minutes Resting Tone [place]: Relaxed Heart Rate FHR Baseline Rate: 145 Monitor Mode: External US FHR Baseline Changes: No Baseline Change Variability: Moderate 6-25 bpm Accelerations: Prolonged Decelerations: None Category: Category I Pain Presence: Intermittent Pain Type: Pressure Pain Location: Abdomen Pain Relief Measures: Comfort Measures Pain Assessment Comments: Pt denies pain with UC, states she only feels pressure Datetime: 11/28/2018 14:10 Assessment Type: Ongoing Assessment Vaginal Bleeding: None Maternal Assessment Level of Consciousness: Fully Conscious DTR's/Clonus: DTRs 2+; No Clonus Headache: Denies Blurred Vision: No Respiratory Effort: Unlabored; Regular Rhythm; Equal Expansion Breath Sounds, Left: Clear and Equal Breath Sounds, Right: Clear and Equal Nausea/Vomiting: Denies RUQ Epigastric Pain: Denies Lower Extremities Edema: None Degree: None Upper Extremities Edema: None Degree: None Facial Edema: None Fall Risk Assessment History of Falling: (0) No Secondary Diagnosis: (0) No Ambulatory Aid: (0) Bedrest/Nurse Assist IV Therapy: (20) Yes Gait: (0) Normal/Bedrest/Immobile Mental Status: (0) Oriented to Own Ability Fall Score: 20 Fall Risk Score Definition: No Risk: No action required Datetime: 11/28/2018 14:07 Stage of : Antepartum Datetime: 11/28/2018 13:40 Time of Arrival: 11/28/2018 13:40 EGA: 31.1 Arrived By: Ambulatory Arrived From: OB Triage Datetime: 11/28/2018 09:42 Fall Score: 0 Fall Risk Score Definition: No Risk: No action required Datetime: 11/28/2018 09:32 EGA: 31.1 Datetime: 09/24/2018 17:12 Fall Score: 0 Fall Risk Score Definition: No Risk: No action required Datetime: 09/24/2018 17:06 EGA: 21.6
[2018-12-11] MEDS: LACTATED RINGER'S 1,000 ML IV SCH ×4 (03:42→21:59)
[2018-12-11] MEDS: CEFAZOLIN 1 GM/50 ML (PMX) 50 ML IVPB SCH ×3 (04:11→20:07)
[2018-12-11] MEDS ORDERED: CEFAZOLIN 1 GM/50 ML (PMX) 50 ML IVPB SCH (06:00)
[2018-12-11] MEDS: PRENATAL VITAMIN PO SCH (08:57)
--- NOTE | 2018-12-11 10:39 | PREOPHP ---
DATE OF ADMISSION: 12/11/2018 HISTORY OF PRESENT ILLNESS: This is a 38-year-old lady, 5, para 3 with 1 , EDC 12/29 at 33 weeks , admitted to labor and delivery area for observation. She started to have lower abdominal pains and low back pains and pains with urination. She had a history of UTI before and was treated. She was given betamethasone on 11/28 and 11/29. PAST PERSONAL HISTORY: No history of diabetes, TB, asthma. ALLERGIES: No allergies. SOCIAL HISTORY: Patient does not smoke. She does not drink. She does not take any drugs except her iron and vitamins. MEDICATIONS: Iron and vitamins. GYNECOLOGIC HISTORY: She had menarche at the age of 11, every 28 days interval, 3 to 4 days duration , and moderate in amount. FAMILY HISTORY: Noncontributory. She is 5, para 3. Her first delivery was in 2000, 2nd in 2002 and third in 2005. All normal deliveries. REVIEW OF SYSTEMS: CARDIOVASCULAR: No chest pains. RESPIRATORY: No cough. GASTROINTESTINAL: No diarrhea, no vomiting. GENITOURINARY: No dysuria. PHYSICAL EXAMINATION: GENERAL: Reveals a conscious, coherent lady and in no acute distress. VITAL SIGNS: Her blood pressure 120/80, pulse rate 80 per minute, respirations 16 per minute. BREASTS, HEART AND LUNGS: Within normal limits. ABDOMEN: Soft. No organomegaly. Fundic height 33 cm. Bilateral CVA tenderness, hypogastric tender ness as well. PELVIC: Revealed the cervix to be closed. EXTREMITIES: No pedal edema. ADMITTING DIAGNOSIS: 33 weeks intrauterine with urinary tract infection. The plans were e xplained to the patient as to and she understood everything totally. Blood and urine tests were orde red, and she was given IV hydration and also started on IV antibiotics. PLAN: She will have IV antibiotics until tomorrow. Dictated By: MYRA CARBONE MD NS/NTS Conf#: [id number] DID#: [id number] CC: MYRA CARBONE MD;*EndCC*
[2018-12-12] MEDS: CEFAZOLIN 1 GM/50 ML (PMX) 50 ML IVPB SCH ×2 (04:03→12:44)
[2018-12-12] MEDS: LACTATED RINGER'S 1,000 ML IV SCH (06:07)
[2018-12-12] MEDS: PRENATAL VITAMIN PO SCH (11:11)
--- NOTE | 2018-12-12 16:22 | QN ---
Documentation Comment patient is seen at the bed side she is comfortable no Urinary symptoms BPP 10/10 Cx closed No CTxs No CVA tenderness --->Discharged with precautions --->Questions answered --->Follow up with provider ANGY PORTILLO M.D. Dec 12, 2018 16:22
--- NOTE | 2018-12-12 16:23 | DS ---
Date/Time of Note Date/Time of Note DATE: 12/12/18 TIME: 16:22 Discharge Summary Admission/Discharge Info Admit Date/Time Dec 11, 2018 at 03:00 Discharge Date/Time 12/12/2018 Discharge Diagnosis UTI Patient Condition: Good Hospital Course uneventful Home Meds Reported Medications Ferrous Gluconate (Iron) 256 Mg Tablet, 256 MG PO DAILY, TAB 09/24/18 [id number] ( 19) 1 Each Tablet, 1 TAB PO DAILY, TAB 09/24/18 Primary Care Provider Not On Staff Doctor ANGY PORTILLO M.D. Dec 12, 2018 16:23
== END 2018-12-12 16:45 | disposition home or self-care (01) | DRG 833 ==
LOC: OBT 02:25 → L-D 02:26 → OBT 03:00 → L-D 03:00
PROVIDERS: ADMIT Obstetrics & Gynecology; ATTEND Obstetrics & Gynecology
DX: O23.43 Unspecified infection of urinary tract in pregnancy, third trimester (principal); Z3A.33 33 weeks gestation of pregnancy
CPT/HCPCS: 76815; 76818; 80053; 81001; 85025; 87086; G0463; J0690; J7120

== ENCOUNTER 2019-01-03 17:58 | Outpatient (CLI) | payer BC ==
[~2019-01-03] VITALS: Ht 162.6 cm; Wt 102.5 kg
[2019-01-03 18:26] VITALS: BP 118/73; PULSE 66; RESP 20; Ht 162.6 cm; Wt 102.5 kg
--- NOTE | 2019-01-04 01:04 | PN ---
Triage Information Date/Time Reason for visit: Decreased movement, pelvic pain Weeks of Gestation 36 weeks and 2 days /Para Diabetes: none Hypertention: none Objective Vital Signs Date Temp Pulse Resp B/P (MAP) Pulse Ox O2 O2 Flow FiO2 Time Delivery Rate 01/03/19 98.3 66 20 118/73 Room Air 18:26 (88) Heart Rate: 140's Contractions: >10 Minutes Apart Results/Medications Imaging Results There is a single live intrauterine . cardiac activity is i dentified at a rate of 135 beats per minute. presentation is breech. Placenta is anterior grade 1 to II. Biophysical profile score is as follows: Breathing 2 Movements 2 Tone 2 Fluid volume 2 Amniotic fluid index = 15.2 cm Total biophysical profile score = 8/8 IMPRESSION: Biophysical profile score = 8/8 Disposition: Discharge Assessment/Plan 38 years old with single intrauterine at 36 weeks and 2 days with a THEO of 01/29/2019 complaining of decreased movement and pelvic pain. She states good movement. She denies nausea, vomiting, shortness of breath, chest pain, headache, visual changes, vaginal bleeding or LOF. She has occasional uterine contractions. -FHR: No sign of metabolic acidosis- Category I -Contractions: Occasional uterine contractions, patient not feeling does -Ultrasound performed as noted above, KAREN 15.2 -Symptoms and sign of labor, preeclampsia, kick count discussed with patient, she voiced understanding. All of her questions answered. -Patient was discharged home in stable condition with the appropriate discharge instructions provided. I would like patient to have close follow-up with her primary physician UMA BOLAÑOS Jan 04, 2019 01:03
--- NOTE | 2019-01-04 08:33 | TRIAGE ---
OB Triage Datetime Report Generated by CPN: 01/04/2019 08:32 Datetime: 01/04/2019 20:35 Stage of : OB Triage Labor Evaluation Frequency: OCCASS Monitor Mode: External Duration (sec)2399: 40-50 Quality: Mild Pattern: Normal: <= 5 Contractions in 10 Minutes Resting Tone [place]: Relaxed Heart Rate FHR Baseline Rate: 155 Monitor Mode: External US FHR Baseline Changes: No Baseline Change Variability: Moderate 6-25 bpm Accelerations: 15X15 Decelerations: None Category: Category I Pain Assessment Pain Scale: 0 Pain Presence: None/Denies Pain Type: N/A Pain Goal: 0 Datetime: 01/03/2019 20:05 Vaginal Exam Dilatation (cms): 0.0 Effacement (%): 0 Station: -2 Exam By: AVIVA Vaginal Bleeding: None Cervix, Consistency: Moderate Cervix, Position: Midposition Datetime: 01/03/2019 19:30 Stage of : OB Triage Labor Evaluation Frequency: OCCASS Monitor Mode: External Duration (sec)2399: 40-50 Quality: Mild Pattern: Normal: <= 5 Contractions in 10 Minutes Resting Tone [place]: Relaxed Heart Rate FHR Baseline Rate: 150 Monitor Mode: External US FHR Baseline Changes: No Baseline Change Variability: Moderate 6-25 bpm Accelerations: 15X15 Decelerations: None Category: Category I Pain Assessment Pain Scale: 0 Pain Presence: None/Denies Pain Type: N/A Pain Goal: 0 Datetime: 01/03/2019 18:47 Labor Evaluation Frequency: 0 Monitor Mode: External Heart Rate FHR Baseline Rate: 130 Monitor Mode: External US FHR Baseline Changes: No Baseline Change Variability: Moderate 6-25 bpm Accelerations: 15X15 Decelerations: None Category: Category I Pain Assessment Pain Scale: 0 Pain Presence: None/Denies Pain Type: N/A Pain Goal: 0 Datetime: 01/03/2019 18:30 Stage of : OB Triage Assessment Type: Triage Maternal Assessment Level of Consciousness: Fully Conscious DTR's/Clonus: DTRs 2+; No Clonus Headache: Denies Blurred Vision: No Respiratory Effort: Unlabored; Regular Rhythm; Equal Expansion Breath Sounds, Left: Clear and Equal Breath Sounds, Right: Clear and Equal Nausea/Vomiting: Denies RUQ Epigastric Pain: Denies Lower Extremities Edema: None Degree: None Upper Extremities Edema: None Degree: None Facial Edema: None Temperature Route: Axillary Fall Risk Assessment History of Falling: (0) No Secondary Diagnosis: (0) No Ambulatory Aid: (0) Bedrest/Nurse Assist IV Therapy: (0) No Gait: (0) Normal/Bedrest/Immobile Mental Status: (0) Oriented to Own Ability Fall Score: 0 Fall Risk Score Definition: No Risk: No action required Datetime: 01/03/2019 18:24 Monitor Mode: External Monitor Mode: External US Pain Assessment Pain Scale: 0 Pain Presence: None/Denies Pain Type: N/A Pain Goal: 0 Membrane Status: Intact Datetime: 01/03/2019 17:54 Time of Arrival: 01/03/2019 17:54 EGA: 36.2 Arrived By: Ambulatory Arrived From: Home Chief Complaint: NO MOVEMENT SINCE 1100 Movement: Absent Contractions: Denies/Absent Rupture of Membranes: Denies Vaginal Bleeding: None Vaginal Discharge: Present Recent Sexual Intercouse: Denies Abdominal Trauma: Not Applicable Patient Complaints: Other Time Provider Notified: 01/03/2019 19:54 Provider Notified: salceda Initial Plan: BPP, VE Datetime: 12/12/2018 16:11 Labor Evaluation Frequency: 0 Monitor Mode: External Heart Rate FHR Baseline Rate: 150 Monitor Mode: External US FHR Baseline Changes: No Baseline Change Variability: Moderate 6-25 bpm Accelerations: 15X15 Decelerations: None Category: Category I Pain Presence: None/Denies Vaginal Exam Dilatation (cms): 0.0 Datetime: 12/12/2018 09:54 Labor Evaluation Frequency: 0 Monitor Mode: External Heart Rate FHR Baseline Rate: 145 Monitor Mode: External US FHR Baseline Changes: No Baseline Change Variability: Moderate 6-25 bpm Accelerations: 15X15 Decelerations: None Category: Category I Pain Presence: None/Denies Datetime: 12/12/2018 07:20 Assessment Type: Ongoing Assessment Maternal Assessment Level of Consciousness: Fully Conscious DTR's/Clonus: DTRs 2+; No Clonus Headache: Denies Blurred Vision: No Respiratory Effort: Unlabored; Regular Rhythm; Equal Expansion Breath Sounds, Left: Clear and Equal Breath Sounds, Right: Clear and Equal Nausea/Vomiting: Denies RUQ Epigastric Pain: Denies Facial Edema: None Fall Risk Assessment History of Falling: (0) No Secondary Diagnosis: (0) No Ambulatory Aid: (0) Bedrest/Nurse Assist IV Therapy: (0) No Gait: (0) Normal/Bedrest/Immobile Mental Status: (0) Oriented to Own Ability Fall Score: 0 Fall Risk Score Definition: No Risk: No action required Datetime: 12/12/2018 07:16 Stage of : Antepartum Datetime: 12/12/2018 06:09 Stage of : Antepartum Maternal Assessment Level of Consciousness: Fully Conscious Temperature Route: Oral Contraction Comments: Off Comments: Off Pain Assessment Pain Scale: 0 Pain Presence: None/Denies Pain Goal: 0 Datetime: 12/12/2018 05:10 Stage of : Antepartum Maternal Assessment Level of Consciousness: Fully Conscious Contraction Comments: Off Comments: Off Pain Assessment Pain Scale: 0 Pain Presence: None/Denies Pain Goal: 0 Pain Relief Measures: Comfort Measures Datetime: 12/12/2018 04:10 Stage of : Antepartum Maternal Assessment Level of Consciousness: Fully Conscious Contraction Comments: Off Comments: Off Pain Assessment Pain Scale: 0 Pain Presence: None/Denies Pain Goal: 0 Pain Relief Measures: Comfort Measures Datetime: 12/12/2018 03:10 Stage of : Antepartum Maternal Assessment Level of Consciousness: Fully Conscious Contraction Comments: Off Comments: Off Pain Assessment Pain Scale: 0 Pain Presence: None/Denies Pain Goal: 0 Pain Relief Measures: Comfort Measures Datetime: 12/12/2018 02:10 Stage of : Antepartum Maternal Assessment Level of Consciousness: Fully Conscious Nausea/Vomiting: Denies RUQ Epigastric Pain: Denies Contraction Comments: Off Comments: Off Pain Assessment Pain Scale: 0 Pain Presence: None/Denies Pain Goal: 0 Pain Relief Measures: Comfort Measures Datetime: 12/12/2018 01:10 Stage of : Antepartum Maternal Assessment Level of Consciousness: Fully Conscious Nausea/Vomiting: Denies RUQ Epigastric Pain: Denies Contraction Comments: Off Comments: Off Pain Assessment Pain Scale: 0 Pain Presence: None/Denies Pain Goal: 0 Pain Relief Measures: Comfort Measures Pain Assessment Comments: Pt sleeping Datetime: 12/12/2018 00:05 Stage of : Antepartum Maternal Assessment Level of Consciousness: Fully Conscious Nausea/Vomiting: Denies RUQ Epigastric Pain: Denies Contraction Comments: off Comments: off Pain Assessment Pain Scale: 0 Pain Presence: None/Denies Pain Goal: 0 Pain Relief Measures: Comfort Measures Pain Assessment Comments: Up to use the BR no c/o of pain. Datetime: 12/11/2018 23:03 Stage of : Antepartum Maternal Assessment Level of Consciousness: Fully Conscious Nausea/Vomiting: Denies RUQ Epigastric Pain: Denies Contraction Comments: Off Comments: Off Pain Assessment Pain Scale: 0 Pain Presence: None/Denies Pain Goal: 0 Pain Relief Measures: Comfort Measures Pain Assessment Comments: Pt sleeping at this time Datetime: 12/11/2018 22:03 Stage of : Antepartum Maternal Assessment Level of Consciousness: Fully Conscious Nausea/Vomiting: Denies RUQ Epigastric Pain: Denies Temperature Route: Oral Contraction Comments: EFM off Comments: EFM Off Pain Assessment Pain Scale: 0 Pain Presence: Intermittent Pain Type: Cramping Pain Location: Abdomen; Perineum Pain Goal: 0 Pain Relief Measures: Comfort Measures Datetime: 12/11/2018 21:50 Stage of : Antepartum Labor Evaluation Frequency: 0 Monitor Mode: External Pattern: Normal: <= 5 Contractions in 10 Minutes Resting Tone [place]: Relaxed Heart Rate FHR Baseline Rate: 140 Monitor Mode: External US FHR Baseline Changes: No Baseline Change Variability: Moderate 6-25 bpm Accelerations: 15X15 Decelerations: None Pain Presence: Intermittent Pain Type: Cramping Pain Location: Abdomen; Perineum Pain Relief Measures: Comfort Measures Datetime: 12/11/2018 20:50 Stage of : Antepartum Labor Evaluation Frequency: 0 Monitor Mode: External Pattern: Normal: <= 5 Contractions in 10 Minutes Resting Tone [place]: Relaxed Heart Rate FHR Baseline Rate: 140 Monitor Mode: External US FHR Baseline Changes: No Baseline Change Variability: Moderate 6-25 bpm Accelerations: 15X15 Decelerations: None Category: Category I Comments: Reactive NST, EFM removed for night unless pt c/o s/s of PTL Pain Presence: Intermittent Pain Type: Cramping Pain Location: Abdomen; Perineum Pain Relief Measures: Comfort Measures Datetime: 12/11/2018 20:07 Stage of : Antepartum Datetime: 12/11/2018 19:50 Stage of : Antepartum Labor Evaluation Frequency: 0 Monitor Mode: External Pattern: Normal: <= 5 Contractions in 10 Minutes Resting Tone [place]: Relaxed Heart Rate FHR Baseline Rate: 140 Monitor Mode: External US FHR Baseline Changes: No Baseline Change Variability: Moderate 6-25 bpm Accelerations: 15X15 Decelerations: None Comments: EFM on for NST Q Shift. Pain Presence: Intermittent Pain Type: Cramping Pain Location: Abdomen; Perineum Pain Relief Measures: Comfort Measures Datetime: 12/11/2018 19:45 Assessment Type: Ongoing Assessment Maternal Assessment Level of Consciousness: Fully Conscious DTR's/Clonus: DTRs 2+; No Clonus Headache: Denies Blurred Vision: No Respiratory Effort: Unlabored; Regular Rhythm; Equal Expansion Breath Sounds, Left: Clear and Equal Breath Sounds, Right: Clear and Equal Nausea/Vomiting: Denies RUQ Epigastric Pain: Denies Lower Extremities Edema: None Degree: None Upper Extremities Edema: None Degree: None Facial Edema: None Temperature Route: Oral Fall Risk Assessment History of Falling: (0) No Secondary Diagnosis: (0) No Ambulatory Aid: (0) Bedrest/Nurse Assist IV Therapy: (0) No Gait: (0) Normal/Bedrest/Immobile Mental Status: (0) Oriented to Own Ability Fall Score: 0 Fall Risk Score Definition: No Risk: No action required Datetime: 12/11/2018 18:19 Stage of : Antepartum Datetime: 12/11/2018 17:05 Stage of : Antepartum Datetime: 12/11/2018 16:05 Stage of : Antepartum Temperature Route: Oral Pain Assessment Pain Scale: 0 Pain Presence: None/Denies Pain Type: N/A Datetime: 12/11/2018 12:15 Stage of : Antepartum Datetime: 12/11/2018 12:10 Stage of : Antepartum Datetime: 12/11/2018 12:07 Stage of : Antepartum Temperature Route: Oral Pain Assessment Pain Scale: 3 Pain Presence: Intermittent Pain Type: Burning Pain Location: Abdomen; Perineum Datetime: 12/11/2018 11:20 Stage of : Antepartum Datetime: 12/11/2018 10:45 Stage of : Antepartum Datetime: 12/11/2018 08:45 Labor Evaluation Frequency: X1 Monitor Mode: External Duration (sec)2399: 60 Pattern: Normal: <= 5 Contractions in 10 Minutes Resting Tone [place]: Relaxed Heart Rate FHR Baseline Rate: 140 Monitor Mode: External US FHR Baseline Changes: No Baseline Change Variability: Moderate 6-25 bpm Accelerations: 15X15 Decelerations: None Comments: NST COMPLETED Pain Presence: Intermittent Pain Type: Cramping Pain Location: Abdomen; Perineum Pain Relief Measures: Comfort Measures Datetime: 12/11/2018 08:08 Stage of : Antepartum Datetime: 12/11/2018 08:06 Monitor Mode: External Monitor Mode: External US Comments: NST STARTED Pain Presence: Intermittent Pain Type: Burning Pain Location: Abdomen; Perineum; Other Datetime: 12/11/2018 08:04 Stage of : Antepartum Datetime: 12/11/2018 07:01 Assessment Type: Ongoing Assessment Datetime: 12/11/2018 04:11 Stage of : Antepartum Datetime: 12/11/2018 04:00 Assessment Type: Admission Assessment Vaginal Bleeding: None Maternal Assessment Level of Consciousness: Fully Conscious DTR's/Clonus: DTRs 2+; No Clonus Headache: Denies Blurred Vision: No Respiratory Effort: Unlabored; Regular Rhythm; Equal Expansion Breath Sounds, Left: Clear and Equal Breath Sounds, Right: Clear and Equal Nausea/Vomiting: Denies RUQ Epigastric Pain: Denies Lower Extremities Edema: None Degree: None Upper Extremities Edema: None Degree: None Facial Edema: None Fall Risk Assessment History of Falling: (0) No Secondary Diagnosis: (0) No Ambulatory Aid: (0) Bedrest/Nurse Assist IV Therapy: (0) No Gait: (0) Normal/Bedrest/Immobile Mental Status: (0) Oriented to Own Ability Fall Score: 0 Fall Risk Score Definition: No Risk: No action required Datetime: 12/11/2018 03:42 Stage of : Antepartum Datetime: 12/11/2018 02:34 Fall Score: 0 Fall Risk Score Definition: No Risk: No action required Datetime: 12/11/2018 02:20 EGA: 33.0 Datetime: 11/30/2018 08:00 Fall Score: 0 Fall Risk Score Definition: No Risk: No action required Datetime: 11/29/2018 19:33 Fall Score: 0 Fall Risk Score Definition: No Risk: No action required Datetime: 11/29/2018 07:21 Fall Score: 20 Fall Risk Score Definition: No Risk: No action required Datetime: 11/28/2018 19:27 Fall Score: 20 Fall Risk Score Definition: No Risk: No action required Datetime: 11/28/2018 14:10 Fall Score: 20 Fall Risk Score Definition: No Risk: No action required Datetime: 11/28/2018 13:40 EGA: 31.1 Datetime: 11/28/2018 09:42 Fall Score: 0 Fall Risk Score Definition: No Risk: No action required Datetime: 11/28/2018 09:32 EGA: 31.1 Datetime: 09/24/2018 17:12 Fall Score: 0 Fall Risk Score Definition: No Risk: No action required Datetime: 09/24/2018 17:06 EGA: 21.6
== END 2019-01-03 20:50 | disposition home or self-care (01) ==
LOC: OBT 17:58 → L-D 17:59 → OBT 20:50
PROVIDERS: ATTEND Obstetrics & Gynecology
DX: O36.8130 Decreased fetal movements, third trimester, not applicable or unspecified (principal); O09.523 Supervision of elderly multigravida, third trimester; Z3A.36 36 weeks gestation of pregnancy
CPT/HCPCS: 76818; Z7500; G0463

== ENCOUNTER 2019-01-12 03:52 | Emergency (ER) | payer BC ==
[~2019-01-12] VITALS: Ht 165.1 cm; Wt 102.7 kg
[2019-01-12 03:59] VITALS: Ht 165.1 cm; Wt 102.7 kg
--- NOTE | 2019-01-12 04:42 | ERD ---
ER Documentation Chief Complaint Chief Complaint chest pain/abd pain x 1 day, states 37 weeks . denies vb HPI This is a 38-year-old previously healthy female currently at 37 weeks gestational age who is presenting for chest wall pain. The patient does not endorse any obvious trauma or injury, but she cannot fully rule it out. She endorses pain to the anterior chest, worse with movement and breathing. It started at approximately 11 PM this evening. The patient reports improvement of her pain when resting and not moving. It is exacerbated by palpitation. She is otherwise not short of breath. She is comfortable and in no apparent distress in the room. The patient is less than 50 years old. She is not tachycardic. She is not hypoxic. She has not had any leg swelling or calf tenderness. She has not had any hemoptysis. She has not had any recent surgery or trauma. She denies any history of bleeding or clotting disorders. She is , but she is not on any hormonal medicines. The patient denies feeling sick recently. The patient denies fever or chills. The patient has had no headache or vision changes. The patient does not endorse neck or back pain. The patient denies lightheadedness or dizziness. The patient denies nausea or vomiting. The patient denies abdominal pain, but she does end orse abdominal tightness related to her . She does not endorse any vaginal bleeding or discharge or loss of fluid. She has been feeling the baby move without issue. The patient denies changes to bowel movements or urination. The patient has had no focal deficits. The patient has had no weakness or numbness or tingling to the face or extremities. ROS All systems reviewed and are negative except as per history of present illness. Medications Home Meds Reported Medications Ferrous Gluconate (Iron) 256 Mg Tablet, 256 MG PO DAILY, TAB 09/24/18 [id number]-ONP ( 19) 1 Each Tablet, 1 TAB PO DAILY, TAB 09/24/18 Allergies Allergies: Coded Allergies: No Known Drug Allergies (Verified Allergy, Mild, 05/07/17) PMhx/Soc History of Surgery: Yes (ovarian cyst removal, ear surgery) Anesthesia Reaction: No Hx Neurological Disorder: Yes (migraine ROMERO) Hx Respiratory Disorders: No Hx Cardiac Disorders: Yes (HTN) Hx Psychiatric Problems: No Hx Miscellaneous Medical Probl: No Hx Alcohol Use: No Hx Substance Use: No Hx Tobacco Use: No Smoking Status: Never smoker FmHx Family History: No diabetes Physical Exam Vitals Vital Signs Date Temp Pulse Resp B/P (MAP) Pulse Ox O2 O2 Flow FiO2 Time Delivery Rate 01/12/19 97.2 63 18 138/87 98 03:59 (104) Physical Exam Const: No apparent distress, well-developed, well-nourished Head: Normocephalic, Atraumatic Eyes: Normal Conjunctiva. Extraocular movements grossly intact. ENT: Normal External Ears, Nose and Mouth. Neck: Full range of motion. No meningismus. Resp: Clear to auscultation bilaterally, No wheezes, rales or rhonchi Cardio: Regular rate and rhythm. No murmurs, rubs or gallops Chest: Tenderness to palpation of the left parasternal chest. Abd: Soft, non tender. Distended with a gravid uterus. Normal bowel sounds Skin: No petechiae or rashes Back: No midline tenderness. No CVA tenderness Ext: No cyanosis, or edema Neur: Awake and alert, oriented 4. Cranial nerves intact. No facial droop. Normal strength, sensation and coordination. Psych: Normal Mood and Affect Procedures/MDM MDM The patient's presentation warrants further investigation. Previous medical records, if available, were reviewed. EKG EKG read by me: Rate/Rhythm: Sinus bradycardia at 58 bpm Intervals: Normal [place]: Normal Impression: No evidence of acute ischemia or emergent arrhythmia TREATMENT/DISPOSITION The patient's symptoms are most consistent with chest wall pain. Cos tochondritis is certainly a possibility. The patient's lungs are clear. I have very low suspicion for pneumonia or pneumothorax or pleural effusions or pulmonary edema. The patient does not have signs or symptoms concerning for thoracic aortic aneurysm or dissection. The patient does not have clinical evidence of pneumomediastinum or signs concerning for esophageal tear or ruptu re. The patient has no clinical signs of pericardial effusion or tamponade. I have decreased suspicion of viscus perforation as possible referred pain. The patient does not have a history of heart failure and I have low suspicion for this. The patient does not have a diagnosis of COPD and is not wheezing today. The patient is not tachypneic or hypoxic. The patient is breathing comfortably. The patient is not on hormonal therapy. The patient has no history of clotting or bleeding disorders. The patient has no calf tenderness. The patient has had no hemoptysis. I have decreased suspicion for PE. The patient's troponin and EKG are reassuring. I have low suspicion for acute coronary syndrome. The patient does endorse abdominal tightness but no actual pain. She does not endorse any complications with the . That said, the patient will be discharged to the OB triage for further assessment of her . DISCHARGE Upon reevaluation of the patient, symptoms have improved. No emergent diagnoses were identified. At this time, I feel that the patient stable for discharge. The patient was instructed to follow-up with a primary care physician in 1-3 days. The patient will be given strict precautions with which to return to the emergency department. Prescriptions: None The patient's blood pressure was elevated at greater than 120/80 while in the emergency department. The patient was otherwise stable with no evidence of hypertensive urgency or emergency. The patient does not require admission for blood pressure control. I have discussed with the patient the risks of hypertension. I have instructed the patient to return to the ER for any new or worsening symptoms including chest pain, shortness of breath, headache, blurred vision, confusion, nausea, vomiting or LOC. I have advised the patient to follow up with the primary care physician for outpatient monitoring and treatment for hypertension in 1-3 days. Disclaimer: Inadvertent spelling and grammatical errors are likely due to EHR/dictation software use and do not reflect on the overall quality of patient care. Note that the electronic time recorded on this note does not necessarily reflect the actual time of the patient encounter. Departure Diagnosis: Primary Impression: Chest wall pain Additional Impression: Third trimester Condition: Stable Patient Instructions: Adapting to : Third Trimester, Chest Wall Strain Additional Instructions: Thank you for for coming to [facility] for your care today. Please ask your nurse or provider if you have questions about your care today and do not leave until all your questions have been answered. Please use any medications given as directed and follow-up with your doctor (or the doctor you were referred to) in the next 1-3 days. If you do not have a primary care doctor you may follow up at the [facility] or [facility] (listed below). You may also use motrin and tylenol as needed for fever and/or pain unless instructed otherwise by your provider or nurse. Indications for more urgent follow-up have been discussed, but you may return to the Emergency Department at ANY time for any worrisome or worsening symptoms. If you have abdominal pain, please know that no test or exam you received is perfect and you should follow up within 8 hours for continued pain. If you had any imaging studies today, such as an X-Ray or CT Scan, these studies will be reviewed later by a radiologist. You will be called if there are important findings that were not identified today, so make sure the contact information you provided at registration is correct. If you received any narcotic pain control medicine today, such as Vicodin, Morphine or Dilaudid, your coordination and judgment may be affected for a number of hours. Please do not drive or operate heavy machinery, and you may want someone to assist you at home. If you were given a prescription for narcotic medication, be aware that it is very addictive- use sparingly and only if necessary. PLEASE SEEK FURTHER EVALUATION AND MANAGEMENT AT YOUR DOCTORS OFFICE WITHIN THE NEXT 1-3 DAYS. IT IS YOUR RESPONSIBILITY TO MAKE AN APPOINTMENT FOR FOLOW-UP C ARE. IF YOU HAVE A PRIMARY DOCTOR, PLEASE CALL THEIR OFFICE TO SCHEDULE AN APPOINTMENT FOR FOLLOW UP. IF YOU DO NOT HAVE A PRIMARY DOCTOR YOU CAN CALL OUR PHYSICIAN REFERRAL HOTLINE AT IF YOU CAN NOT AFFORD TO SEE A PHYSICIAN YOU CAN CHOSE FROM THE FOLLOWING [facility] CLINICS: [facility] [address] [facility] [facility] [address] [facility] [facility] [address] [facility] [facility] [address] [facility] [address] [facility]. [facility]. [address] AKASH MONTEIRO MD Jan 12, 2019 04:39
[2019-01-12 04:58] VITALS: BP 125/91; PULSE 58; RESP 16
== END 2019-01-12 05:03 | disposition home or self-care (01) ==
LOC: E/R 03:52
DX: O99.89 Other specified diseases and conditions complicating pregnancy, childbirth and the puerperium (principal); R07.89 Other chest pain; O10.013 Pre-existing essential hypertension complicating pregnancy, third trimester; Z3A.37 37 weeks gestation of pregnancy
CPT/HCPCS: 93005; Z7502; Z7610

== ENCOUNTER 2019-01-12 05:05 | Outpatient (CLI) | payer BC ==
[~2019-01-12] VITALS: Ht 162.6 cm; Wt 102.8 kg
[2019-01-12 05:16] VITALS: BP 119/75; PULSE 57; RESP 16; Ht 162.6 cm; Wt 102.8 kg
[2019-01-12] MEDS ORDERED: ACETAMINOPHEN 500 MG TAB PO STA (06:12)
--- NOTE | 2019-01-12 08:06 | TRIAGE ---
OB Triage Datetime Report Generated by CPN: 01/12/2019 08:06 Datetime: 01/12/2019 07:32 Maternal Assessment Level of Consciousness: Fully Conscious DTR's/Clonus: DTRs 1+ Headache: Denies Blurred Vision: No Nausea/Vomiting: Denies RUQ Epigastric Pain: Denies Facial Edema: None Labor Evaluation Frequency: OCC Monitor Mode: External Duration (sec)2399: 40-50 Quality: Mild Pattern: Normal: <= 5 Contractions in 10 Minutes Resting Tone [place]: Relaxed Heart Rate FHR Baseline Rate: 135 Monitor Mode: External US Variability: Moderate 6-25 bpm Accelerations: 15X15 Decelerations: None Category: Category I Pain Assessment Pain Scale: 0 Pain Presence: None/Denies Pain Type: N/A Pain Goal: 3 Membrane Status: Intact Datetime: 01/12/2019 07:00 Labor Evaluation Frequency: irregular Monitor Mode: External Duration (sec)2399: 60-100 Pattern: Normal: <= 5 Contractions in 10 Minutes Heart Rate FHR Baseline Rate: 125 Monitor Mode: External US Variability: Moderate 6-25 bpm Accelerations: 15X15 Decelerations: None Category: Category I Datetime: 01/12/2019 06:45 Time of Arrival: 01/12/2019 05:05 EGA: 37.4 Arrived By: Ambulatory Arrived From: Other Unit in Hospital Chief Complaint: LOWER ABD PRESSURE Movement: Present Contractions: Irregular Rupture of Membranes: Denies Vaginal Bleeding: None Vaginal Discharge: Denies Recent Sexual Intercouse: Denies Abdominal Trauma: Not Applicable Additional Patient Complaints: PT CLEARED BY ER FOR CHEST PAIN PRIOR TO BEING TRANSFERRED TO OB TRI AGE Time Provider Notified: 01/12/2019 05:22 Provider Notified: SALCEDA Initial Plan: CEFM, SVE, BPP/KAREN, NST, EFW Datetime: 01/12/2019 06:37 Monitor Mode: External US Datetime: 01/12/2019 06:30 Monitor Mode: External Monitor Mode: External US Datetime: 01/12/2019 06:00 Labor Evaluation Frequency: X1 Monitor Mode: External Duration (sec)2399: 50 Pattern: Normal: <= 5 Contractions in 10 Minutes Heart Rate FHR Baseline Rate: 135 Monitor Mode: External US Variability: Moderate 6-25 bpm Accelerations: 15X15 Decelerations: None Category: Category I Datetime: 01/12/2019 05:21 Vaginal Exam Dilatation (cms): 0.0 Effacement (%): 50 Station: -2 Datetime: 01/12/2019 05:16 Stage of : OB Triage Assessment Type: Triage Maternal Assessment Level of Consciousness: Fully Conscious DTR's/Clonus: DTRs 2+; No Clonus Headache: Denies Blurred Vision: No Respiratory Effort: Unlabored; Regular Rhythm; Equal Expansion Breath Sounds, Right: Clear and Equal Nausea/Vomiting: Denies RUQ Epigastric Pain: Denies Lower Extremities Edema: None Degree: None Upper Extremities Edema: None Degree: None Facial Edema: None Temperature Route: Oral Fall Risk Assessment History of Falling: (0) No Secondary Diagnosis: (0) No Ambulatory Aid: (0) Bedrest/Nurse Assist IV Therapy: (0) No Gait: (0) Normal/Bedrest/Immobile Mental Status: (0) Oriented to Own Ability Fall Score: 0 Fall Risk Score Definition: No Risk: No action required Monitor Mode: External Monitor Mode: External US Comments: AUDIBLE HEART TONES Pain Assessment Pain Scale: 5 Pain Presence: Intermittent Pain Type: Pressure Pain Location: Abdomen Pain Goal: 2 Pain Relief Measures: Comfort Measures Datetime: 01/03/2019 18:30 Fall Score: 0 Fall Risk Score Definition: No Risk: No action required Datetime: 01/03/2019 17:54 EGA: 36.2 Datetime: 12/12/2018 07:20 Fall Score: 0 Fall Risk Score Definition: No Risk: No action required Datetime: 12/11/2018 19:45 Fall Score: 0 Fall Risk Score Definition: No Risk: No action required Datetime: 12/11/2018 04:00 Fall Score: 0 Fall Risk Score Definition: No Risk: No action required Datetime: 12/11/2018 02:34 Fall Score: 0 Fall Risk Score Definition: No Risk: No action required Datetime: 12/11/2018 02:20 EGA: 33.0 Datetime: 11/30/2018 08:00 Fall Score: 0 Fall Risk Score Definition: No Risk: No action required Datetime: 11/29/2018 19:33 Fall Score: 0 Fall Risk Score Definition: No Risk: No action required Datetime: 11/29/2018 07:21 Fall Score: 20 Fall Risk Score Definition: No Risk: No action required Datetime: 11/28/2018 19:27 Fall Score: 20 Fall Risk Score Definition: No Risk: No action required Datetime: 11/28/2018 14:10 Fall Score: 20 Fall Risk Score Definition: No Risk: No action required Datetime: 11/28/2018 13:40 EGA: 31.1 Datetime: 11/28/2018 09:42 Fall Score: 0 Fall Risk Score Definition: No Risk: No action required Datetime: 11/28/2018 09:32 EGA: 31.1 Datetime: 09/24/2018 17:12 Fall Score: 0 Fall Risk Score Definition: No Risk: No action required Datetime: 09/24/2018 17:06 EGA: 21.6
--- NOTE | 2019-01-12 14:31 | PN ---
Triage Information Date/Time January 12 2019 Reason for visit: Pelvic pressure Weeks of Gestation 37 weeks and 5 days /Para 5 para 3 Diabetes: none Hypertention: none Additional information 38-year-old with IUP at 37 weeks and 5 days presents with complaint of pelvic pressure symptoms. She denies any leaking of fluid, vaginal bleeding decreased movement. Denies any other complaints. Objective Vital Signs Date Temp Pulse Resp B/P (MAP) Pulse Ox O2 O2 Flow FiO2 Time Delivery Rate 01/12/19 97.7 57 16 119/75 Room Air 05:16 (90) Heart Rate: 130's Heart Rate Comments testing reassuring Exam Appearance: Alert and oriented x4 does not appear to be in any acute distress NST: Category 1 BPP: 8/8 Vaginal exam: Closed and long Results/Medications Results 24 hrs Laboratory Tests Test 01/12/19 07:04 Urine Color YELLOW Urine Clarity CLEAR Urine pH 6.0 Urine Specific [place] 1.013 Urine Ketones NEGATIVE Urine Nitrite NEGATIVE Urine Bilirubin NEGATIVE Urine Urobilinogen NEGATIVE Urine Leukocyte Esterase NEGATIVE Urine Hemoglobin NEGATIVE Urine Glucose NEGATIVE Urine Total Protein NEGATIVE Imaging Results PROCEDURE: US OB biophysical profile. CLINICAL INDICATION: Abdominal pain TECHNIQUE: Multiple sonographic images of the pelvis were obtained. The images were reviewed on a PACS workstation. COMPARISON: None FINDINGS: Cardiac activity is present with 154 beats per minute. There is a breech presentation. The placenta is anterior. Biophysical profile: movement 2/2 tone 2/2. breathing 2/2 KAREN 2/2 Total 8/8 IMPRESSION: Biophysical profile measures 8/8. RPTAT: HAP Disposition: Discharge Assessment/Plan IUP 37 weeks and 5 days Pelvic pressure. No evidence of labor Symptoms resolved after hydration Evidence of PPROM. testing reassuring DC home Labor precautions kick count and follow-up within 24-48 hours with primary OB office discussed with patient Patient verbalized understanding. All questions answered to patient's best satisfaction GIANCARLO HAN MD Jan 12, 2019 14:31
== END 2019-01-12 07:38 | disposition home or self-care (01) ==
LOC: L-D 05:05 → OBT 05:05
PROVIDERS: ATTEND Obstetrics & Gynecology
DX: O26.893 Other specified pregnancy related conditions, third trimester (principal); Z3A.37 37 weeks gestation of pregnancy; R10.2 Pelvic and perineal pain
CPT/HCPCS: 76815; 76818; 81003; Z7500; Z7610; G0463

== ENCOUNTER 2019-01-18 10:33 | Inpatient (IN) | payer BC ==
[~2019-01-18] VITALS: Ht 162.6 cm; Wt 102.3 kg
[~2019-01-18 10:33] MED LIST changes: +OXYTOCIN 30 UNITS/LR 500 ML BAG IV ONE
[2019-01-18] MEDS ORDERED: OXYTOCIN 30 UNITS/LR 500 ML IV SCH (12:00)
[2019-01-18] MEDS ORDERED: CARBOPROST 250 MCG INJ IM PRN ×2 (12:00→16:30)
[2019-01-18] MEDS ORDERED: CEFAZOLIN 2 GM/50 ML (PMX) 50 ML IVPB SCH (12:00)
[2019-01-18] MEDS ORDERED: METHYLERGONOVINE 0.2 MG INJ IM PRN ×2 (12:00→16:30)
[2019-01-18] MEDS ORDERED: OXYTOCIN 30 UNITS/LR 500 ML IV PRN ×2 (12:00→16:30)
[2019-01-18] MEDS ORDERED: MISOPROSTOL 200 MCG TAB PR PRN ×2 (12:00→16:30)
[2019-01-18 13:46] VITALS: Ht 162.6 cm; Wt 102.3 kg
[2019-01-18 13:47] VITALS: BP 120/80; PULSE 86; RESP 20
[2019-01-18] MEDS: LACTATED RINGER'S 1,000 ML IV SCH ×2 (13:54→13:55)
--- NOTE | 2019-01-18 14:45 | PREAC ---
Date/Time of Note Date/Time of Note DATE: 01/18/19 TIME: 14:44 Anesthesia Eval and Record Evaluation Time Pre-Procedure Interview DATE: 01/18/19 TIME: 14:44 Age 38 Sex female NPO: 8 hrs Preoperative diagnosis IUP, PIH Planned procedure Csection Past Medical History Past Medical History: Includes Cardio: HTN GI: Obesity Surgery & Anesthesia Issues No known issue Meds Anticoagulation: No Beta Carey within 24 hr: No Reason Beta Carey not given: Pt. not on B-Carey Reported Medications Ferrous Gluconate (Iron) 256 Mg Tablet, 256 MG PO DAILY, TAB 09/24/18 [id number] ( ) 1 Each Tablet, 1 TAB PO DAILY, TAB 09/24/18 Current Medications Lactated Ringer's 1,000 ml @ 125 mls/hr Q8H IV Last administered on 01/18/19at 13:55; Admin Dose 125 MLS/HR; Start 01/18/19 at 11:42 Cefazolin Sodium/ Dextrose 50 ml @ 100 mls/hr ONCE IVPB Last administered on 01/18/19at 13:54; Admin Dose 100 MLS/HR; Start 01/18/19 at 12:00 Oxytocin/Lactated Ringer's 500 ml @ 125 mls/hr POST IV ; Start 01/18/19 at 12:00 Oxytocin/Lactated Ringer's 500 ml @ 0 mls/hr ONCE PRN IV .VAGINAL BLEEDING; Start 01/18/19 at 12:00 Methylergonovine Maleate (Methergine) 0.2 mg ONCE PRN IM .VAGINAL BLEEDING; Start 01/18/19 at 12:00 Carboprost Tromethamine (Hemabate) 250 mcg ONCE PRN IM .VAGINAL BLEEDING; Start 01/18/19 at 12:00 Misoprostol (Cytotec) 1,000 mcg ONCE PRN TX .VAGINAL BLEEDING; Start 01/18/19 at 12:00 Meds reviewed: Yes Allergies Coded Allergies: No Known Drug Allergies (Verified Allergy, Mild, 05/07/17) Pork/Porcine Containing Products (Verified Allergy, Mild, 01/18/19) rash Allergies Reviewed: Yes Labs/Studies Labs Reviewed: Reviewed by anesthesiologist Result Diagram: 01/18/19 1225 01/18/19 1224 Laboratory Tests 4/3/19 12:24 01/18/19 12:25 Blood Bank Test 01/18/19 12:25 Antibody Screen NEGATIVE Blood Type A POSITIVE Rh Immune Globulin Candidate NO test: Positive Studies: ECG Pre-procedure Exam Last vitals Vital Signs Date Temp Pulse Resp B/P (MAP) Pulse Ox O2 O2 Flow FiO2 Time Delivery Rate 01/18/19 98.6 86 20 120/80 Room Air 13:47 (93) Airway: Adequate mouth opening, Adequate thyromental dist Mallampati: Mallampati II Teeth: Normal Lung: Normal Heart: Normal ASA Physical Status ASA physical status: 2 Emergency: None Planned Anesthetic Neuraxial: Epidural Planned Pain Management Epidural Pre-operative Attestations Prior to commencing anesthesia and surgery, the patient was re-evaluated, there was verification of: *The patient's identity *The results of appropriate recent lab work and preoperative vital signs *The above evaluation not changing prior to induction *Anesthetic plan, risk benefits, alternative and complications discussed with patient/family; questions answered; patient/family understands, accepts and wishes to proceed. CHRISTIANO LANDERS MD Jan 18, 2019 14:45
[2019-01-18] MEDS ORDERED: morphine SULFATE/PF (10 MG/10 ML) INJ ONE (14:46)
[2019-01-18] MEDS ORDERED: OXYTOCIN 10 UNIT INJ ONE (14:46)
[2019-01-18] MEDS ORDERED: ONDANSETRON 4 MG INJ ONE (14:46)
[2019-01-18] MEDS ORDERED: PHENYLephrine 10 MG INJ ONE (14:55)
[2019-01-18] MEDS ORDERED: FENTAnyl 50 MCG/ML VIAL ONE (15:18)
--- NOTE | 2019-01-18 15:54 | HP ---
DATE OF ADMISSION: 01/18/2019 HISTORY OF PRESENT ILLNESS: This is a 38-year-old lady, 5, para 3 with 1 spontaneous abortio n, EDC 01/29/2019 at 38 and 3/7 weeks, admitted to labor and delivery area in early labor and for alyssa scott . She was at the [facility] today and the NST showed she was having mild irregular con traction. Also, she is known to be breech. She was complaining of epigastric pain, headache, and bl urring of vision. So, Dr. Nolen advised the patient to be delivered today by . The procedu res were explained to the patient, and she understood everything totally. The risks, benefits, and a lternatives were discussed with her as well. PAST PERSONAL HISTORY: No history of TB, asthma. ALLERGIES: NO ALLERGIES. SOCIAL HISTORY: The patient does not smoke. She does not drink. MEDICATIONS: She does not take any drugs except her iron and vitamins. GYNECOLOGIC HISTORY: She had menarche at the age of 11, every 28 days interval, 3 to 4 days' duratio n, and moderate in amount. FAMILY HISTORY: Noncontributory. She is 5, para 3. Her first delivery was 2000, second 2002, third 2005, all normal deliverie s. She had 1 spontaneous . FAMILY HISTORY: Father has diabetes, hypertension, and heart disease. REVIEW OF SYSTEMS: CARDIOVASCULAR: No chest pains. RESPIRATORY: No cough. GASTROINTESTINAL: No diarrhea, no vomiting. GENITOURINARY: No dysuria. PHYSICAL EXAMINATION: GENERAL: Reveals a conscious, coherent lady and in no acute distress. VITAL SIGNS: Her blood pressure 120/80, pulse rate 80 per minute, respirations 16 per minute. BREASTS, HEART AND LUNGS: Within normal limits. ABDOMEN: Term size uterus. Estimated weight is about 7-1/2 pounds with the head in the right upper quadrant of the abdomen. PELVIC: Revealed the cervix to be 2 cm dilated, thick, station floating in cephalic presentation wit h the bag of renee intact. EXTREMITIES: No pedal edema. ADMITTING DIAGNOSIS: 38 and 3/7 weeks intrauterine in early labor with breech presentation . The patient was planned to have a primary . The procedures were explained to the patient , and she understood everything totally. The risks, benefits, and alternatives were discussed with h er as well. Dictated By: MYRA CARBONE MD NS/NTS Conf#: [id number] DID#: [id number] CC: MYRA CARBONE MD;*EndCC*
--- NOTE | 2019-01-18 16:09 | PAC ---
Date/Time of Note Date/Time of Note DATE: 01/18/19 TIME: 16:08 Post-Anesthesia Notes Post-Anesthesia Note Last documented vital signs Vital Signs Date Temp Pulse Resp B/P (MAP) Pulse Ox O2 O2 Flow FiO2 Time Delivery Rate 01/18/19 98.6 86 20 120/80 Room Air 13:47 (93) Activity: WNL Respiratory function: WNL Cardiovascular function: WNL Mental status: Baseline Pain reasonably controlled: Yes Hydration appropriate: Yes Nausea/Vomiting absent: Yes Comments BP:116/56, P:78, Spo2:100%, T:98,8 CHRISTIANO LANDERS MD Jan 18, 2019 16:09
--- NOTE | 2019-01-18 16:22 | OPPN ---
Date/Time of Note Date/Time of Note DATE: 01/18/19 TIME: 16:21 Operative Report Planned Procedure Procedure date Jan 18, 2019 Procedure(s) PRIMARY CSECTION COMPLETE BREECH EXTRACTION Performed by see signature line [employer] Driver: UMA BOLAÑOS [employer] Driver none Pre-procedure diagnosis 38WEEKS 3 DAYS IUP BREECH [id number] Anesthesia Type: [id number] spinal Post-Procedure Post-procedure diagnosis 38WEEKS 3 DAYS BREECH Findings Live Baby GIRL, Apgars 9and 9 Estimated Blood Loss: 500 - 600 mls Specimen(s) none Grafts/Implant(s) PLACENTA Complication(s) none MYRA CARBONE MD Jan 18, 2019 16:22
[2019-01-18] MEDS ORDERED: LACTATED RINGER'S 1,000 ML IV SCH (16:23)
[2019-01-18] MEDS ORDERED: NALOXONE (0.4 MG/ML) INJ IV PRN (16:30)
[2019-01-18] MEDS ORDERED: morphine 2 MG INJ IV PRN (16:30)
[2019-01-18] MEDS ORDERED: METHYLERGONOVINE 0.2 MG TAB PO PRN (16:30)
[2019-01-18] MEDS ORDERED: DIPHENHYDRAMINE 50 MG INJ IV PRN (16:30)
[2019-01-18] MEDS ORDERED: ONDANSETRON 4 MG INJ IV PRN (16:30)
[2019-01-18] MEDS ORDERED: LANOLIN HPA 1 PKT TOP PRN (16:30)
[2019-01-18] MEDS: OXYTOCIN 30 UNITS/LR 500 ML IV SCH ×2 (17:08→21:21)
[2019-01-18] MEDS: KETOROLAC 30 MG INJ IV PRN (19:09)
[2019-01-18 20:00] VITALS: BP 131/83; PULSE 59; RESP 20
[2019-01-18] MEDS: SENNA/DOCUSATE NA (8.6MG/50MG) TAB PO SCH (21:19)
[2019-01-18 21:20] VITALS: BP 128/63; PULSE 69; RESP 20
[2019-01-19] VITALS: BP 123/73; PULSE 60; RESP 20
[2019-01-19 04:00] VITALS: BP 126/70; PULSE 70; RESP 20
[2019-01-19] MEDS: KETOROLAC 30 MG INJ IV PRN ×2 (06:15→11:49)
[2019-01-19 08:00] VITALS: BP 107/65; PULSE 64; RESP 18
[2019-01-19] MEDS: SENNA/DOCUSATE NA (8.6MG/50MG) TAB PO SCH ×2 (09:00→23:47)
[2019-01-19 12:00] VITALS: BP 121/71; PULSE 68; RESP 18
[2019-01-19 15:30] VITALS: BP 115/70; PULSE 73; RESP 18
--- NOTE | 2019-01-19 15:56 | PN ---
Date/Time of Note Date/Time of Note DATE: 01/19/19 TIME: 15:55 Assessment/Plan VTE Prophylaxis Risk score (from Ns)>0 risk: 2 SCD applied (from Ns): Yes Pharmacological prophylaxis: NA/contraindicated Pharm contraindication: low risk/ambulating Lines/Catheters IV Catheter Type (from Nrs): Peripheral IV Assessment/Plan Assessment/Plan POSTCSECTION DAY 1 ORDERED ADVANCE DIET TOLERATED CBC ON 3RD POSTOP DAY Result Diagram: 01/19/19 0812 01/19/19 0812 Results 24hrs Laboratory Tests Test 01/19/19 06:40 01/19/19 08:12 Lab Scanned Report REFERENCE LAB White Blood Count 11.1 H Red Blood Count 3.61 L Hemoglobin 12.2 Hematocrit 35.9 L Mean Corpuscular Volume 99.4 Mean Corpuscular Hemoglobin 33.8 H Mean Corpuscular Hemoglobin Concent 34.0 Red Cell Distribution Width 13.2 Platelet Count 211 Mean Platelet Volume 10.6 H Immature Granulocytes % 0.400 Neutrophils % 82.6 H Lymphocytes % 11.3 L Monocytes % 5.0 Eosinophils % 0.3 Basophils % 0.4 Nucleated Red Blood Cells % 0.0 Immature Granulocytes # 0.050 H Neutrophils # 9.2 H Lymphocytes # 1.3 Monocytes # 0.6 Eosinophils # 0.0 Basophils # 0.0 Nucleated Red Blood Cells # 0.0 Sodium Level 135 Potassium Level 4.3 Chloride Level 105 Carbon Dioxide Level 28 Anion Gap 2 L Blood Urea Nitrogen 7 Creatinine 0.55 Est Glomerular Filtrat Rate mL/min > 60 Glucose Level 86 Calcium Level 8.7 Subjective 24 Hr Interval Summary Free Text/Dictation POST CSECTION DAY 1 COMPLAIN OF INCISIONAL PAINS GOOD URINE OUTPUT PASSING GAS PER RECTUM NO BOWEL MOVEMENT YET Exam/Review of Systems Exam Vitals Vital Signs Date Temp Pulse Resp B/P (MAP) Pulse Ox O2 O2 Flow FiO2 Time Delivery Rate 01/19/19 98.1 68 18 121/71 Room Air 12:00 (88) Intake and Output 01/18/19 01/18/19 01/19/19 1515:00 23:00 07:00 IntakeIntake Total 1650 ml 750 ml 100 ml OutputOutput Total 300 ml 1100 ml 350 ml BalanceBalance 1350 ml -350 ml -250 ml Exam VITAL SIGNS STABLE: YES AFEBRILE: YES BREAST NOT ENGORGED, NON-TENDER, NO APPRECIABLE MASS: YES LUNGS CLEAR, NO RALES, WHEEZES, RHONCHI: YES SINUS RHYTHM WITHOUT MURMUR: YES ABDOMEN: NON-TENDER FUNDUS: BELOW UMBILICUS BOWEL SOUNDS: PRESENT UTERUS: FIRM INCISION (CLEAN, DRY, AND INTACT): YES LOCHIA: LIGHT DEEP TENDON REFLEXES: 0 EXTREMITIES: NO CALF TENDERNESS EDEMA SCALE: NONE Results Results 24hrs Laboratory Tests Test 01/19/19 06:40 01/19/19 08:12 Lab Scanned Report REFERENCE LAB White Blood Count 11.1 H Red Blood Count 3.61 L Hemoglobin 12.2 Hematocrit 35.9 L Mean Corpuscular Volume 99.4 Mean Corpuscular Hemoglobin 33.8 H Mean Corpuscular Hemoglobin Concent 34.0 Red Cell Distribution Width 13.2 Platelet Count 211 Mean Platelet Volume 10.6 H Immature Granulocytes % 0.400 Neutrophils % 82.6 H Lymphocytes % 11.3 L Monocytes % 5.0 Eosinophils % 0.3 Basophils % 0.4 Nucleated Red Blood Cells % 0.0 Immature Granulocytes # 0.050 H Neutrophils # 9.2 H Lymphocytes # 1.3 Monocytes # 0.6 Eosinophils # 0.0 Basophils # 0.0 Nucleated Red Blood Cells # 0.0 Sodium Level 135 Potassium Level 4.3 Chloride Level 105 Carbon Dioxide Level 28 Anion Gap 2 L Blood Urea Nitrogen 7 Creatinine 0.55 Est Glomerular Filtrat Rate mL/min > 60 Glucose Level 86 Calcium Level 8.7 Medications Medication Current Medications Naloxone HCl (Narcan) 0.1 mg Q2M PRN IV .RESP RATE; Start 01/18/19 at 16:30; Stop 01/19/19 at 16:29 Ketorolac Tromethamine (Toradol) 30 mg Q6H PRN IV PAIN AFTER CSECTION Last administered on 01/19/19at 11:49; Admin Dose 30 MG; Start 01/18/19 at 16:30; Stop 01/19/19 at 16:29 Morphine Sulfate (morphine) 2 mg Q3H PRN IV .PAIN 1-5; Start 01/18/19 at 16:30; Stop 01/19/19 at 16:29 Diphenhydramine HCl (Benadryl) 25 mg Q6H PRN IV .ITCHING; Start 01/18/19 at 16:30; Stop 01/19/19 at 16:29 Ondansetron HCl (Zofran Inj) 4 mg Q6H PRN IV .NAUSEA/VOMITING; Start 01/18/19 at 16:30; Stop 01/19/19 at 16:29 Methylergonovine Maleate (Methergine) 0.2 mg Q6H PRN PO .VAGINAL BLEEDING; Start 01/18/19 at 16:30 Acetaminophen/ Hydrocodone Bitart ([place] (5/325)) 1 tab Q4H PRN PO MODERATE PAIN LEVEL 4-6; Start 01/18/19 at 16:30 Acetaminophen/ Hydrocodone Bitart ([place] (5/325)) 2 tab Q4H PRN PO SEVERE PAIN LEVEL 7-10; Start 01/18/19 at 16:30 Ibuprofen (Motrin) 800 mg Q8 PRN PO MILD PAIN LEVEL 1-3; Start 01/18/19 at 16:30 Simethicone (Mylicon) 160 mg Q8H PRN PO .GAS; Start 01/18/19 at 16:30 Senna/Docusate Sodium (Senokot-S) 1 tab BID PO Last administered on 01/18/19at 21 :19; Admin Dose 1 TAB; Start 01/18/19 at 21:00 Lanolin (Lanolin Hpa) 1 applic BEDSIDE MEDICATION PRN TOP .NIPPLES; Start 01/18/19 at 16:30 Diphtheria/ Tetanus/Acell Pertussis (Adacel) 0.5 ml ONCE ONCE IM* ; Start 01/21/19 at 09:00; Stop 01/21/19 at 09:01 Measles/Mumps/ Rubella Vaccine Live (Mmr Ii Vaccine) 0.5 ml ONCE ONCE SC* ; Start 01/21/19 at 09:00; Stop 01/21/19 at 09:01 Oxytocin/Lactated Ringer's 500 ml @ 0 mls/hr ONCE PRN IV .VAGINAL BLEEDING; Start 01/18/19 at 16:30 Methylergonovine Maleate (Methergine) 0.2 mg ONCE PRN IM .VAGINAL BLEEDING; Start 01/18/19 at 16:30 Carboprost Tromethamine (Hemabate) 250 mcg ONCE PRN IM .VAGINAL BLEEDING; Start 01/18/19 at 16:30 Misoprostol (Cytotec) 1,000 mcg ONCE PRN IN .VAGINAL BLEEDING; Start 4/3/19 at 16:30 MYRA CARBONE MD Jan 19, 2019 15:56
[2019-01-19] MEDS: IBUPROFEN 800 MG TAB PO PRN (17:30)
[2019-01-19 20:10] VITALS: BP 130/78; PULSE 79; RESP 18
--- NOTE | 2019-01-19 20:46 | OPR ---
DATE OF OPERATION: 01/18/2019 PREOPERATIVE DIAGNOSES: A 38 and 3/7 weeks' intrauterine , in labor, in sadaf breech presen tation, advanced maternal age. POSTOPERATIVE DIAGNOSES: A 38 and 3/7 weeks' intrauterine , in labor, in sadaf breech prese ntation, advanced maternal age. OPERATION PERFORMED: Primary low transverse section, complete breech extraction. SURGEON: Dorothea Marr MD ALLIGATOR TRAPPER: Dianne Gregory MD ANESTHESIA: Spinal. ANESTHESIOLOGIST: Dario Price MD OPERATIVE TECHNIQUE: Under spinal anesthesia, the patient was prepped and draped in the usual fashio n for abdominal surgery. After checking for the effect of the anesthesia, a Pfannenstiel incision, 1 0 cm skin incision was performed. The incision was carried from the skin up to the fascia. Upon ope nataly the skin up to the fascia, small blood vessels were noted to be oozing and these were all cauter ized. Fascia was opened transversely followed by splitting the muscles vertical and the peritoneum v ertically. Upon opening the abdominal cavity, the bladder blade was put in place. A small paras was performed from the serosa up to the endometrium and the lower uterine segment and the paras was tiarra d sideways with the aid of my 2 fingers. My left hand was inserted in the lower segment of the uteru s and the bag of water was ruptured. Clear fluid was noted. Baby's buttocks were delivered followed by the delivery of the rest of the body of the baby by complete breech extraction without difficulty and the baby's airway was quickly suctioned with amniotic fluid. Cord was clamped after 30 seconds and after 30 seconds, the baby was handed to the NICU team. The placenta was delivered manually and complete. The uterus was exteriorized. The uterus was cleansed with wet lap sponge to make sure hailey t no membranes were left behind. After correct sponge count, the uterus was closed in the usua l fashion using 0 Vicryl for the peritoneum, 0 Vicryl for the muscles. For the fascia, 0 Vicryl cont inuous stitch was used followed by few [id number] sutures. For the subcutaneous tissue, it was closed with 3-0 Vicryl and the skin was closed with 3-0 Vicryl subcuticular suture was used. The pat ient tolerated the procedure well. Estimated blood loss was about 600 mL. Vital signs were stable d uring and after the procedure. She delivered a healthy baby girl at 15:11, 01/18/2019, 9 and 9 , weighing 6 pounds 9 ounces, 20 inches long. Dictated By: DOROTHEA AKBAR/AGNIESZKA Conf#: [id number] DID#: [id number]
--- NOTE | 2019-01-19 23:01 | NSTRPT ---
NST Information Datetime Report Generated by CPN: 01/19/2019 23:01 Datetime: 01/18/2019 08:20 NST Information EGA: 38.3 Test Number: 3 Time on Monitor: 01/18/2019 08:26 Time off Monitor: 01/18/2019 09:10 NST Duration (Min): 44 Reason for NST: Other Reason for NST Other: Advanced Maternal Age. Test and Monitor Explained: Monitor Explained; Test Explained; Verbalized Understanding Pulse: 88 Resp: 18 SBP: 131 DBP: 84 Test Evaluation NST Interventions: Reposition Patient Patient States Movement: Present Contraction Frequency: x3(mild) FHR Baseline : 150 Variability: Moderate 6-25bpm Accelerations: 15X15 Decelerations: None FHR Category: Category I NST Results: Reactive Provider Notified: Dr. Nolen and Dr. Marr. Comments: pt to u/s. KAREN 14.3cm. BREECH. Pt c/o of headaches for last two days, blurry vision and e pigastric pain. reflexes within normal limits on today's assessmet. Dr. Nolen perinatologist recomend s delivery. Dr. Marr notified and gives New orders to keep patient NPO for C/section. Spoke to Sim a charge coordinator and gave report. Explained to patient plan of care. pt states understanding. Pt to the spital NPO since . Electronically Signed By E-Signature: with User ID: [id number] Datetime: 01/11/2019 08:19 NST Information EGA: 37.3 NST Duration (Min): 21 Datetime: 01/06/2019 10:23 NST Information EGA: 36.5 NST Duration (Min): 37
[2019-01-20] MEDS: HYDROCODONE/APAP (5/325) TAB PO PRN ×3 (00:14→22:35)
[2019-01-20 04:20] VITALS: BP 120/71; PULSE 75; RESP 18
[2019-01-20] MEDS: IBUPROFEN 800 MG TAB PO PRN ×2 (05:42→13:29)
[2019-01-20 08:00] VITALS: BP 123/78; PULSE 68; RESP 18
[2019-01-20] MEDS: SENNA/DOCUSATE NA (8.6MG/50MG) TAB PO SCH ×2 (10:26→21:00)
[2019-01-20] MEDS ORDERED: BISACODYL 10 MG SUPP PR ONE ×2 (15:30→21:00)
[2019-01-20] MEDS ORDERED: MAGNESIUM HYDROXIDE 30ML CUP PO ONE ×2 (15:30→21:00)
[2019-01-20 15:35] VITALS: BP 132/80; PULSE 76; RESP 18
--- NOTE | 2019-01-20 16:55 | PN ---
Date/Time of Note Date/Time of Note DATE: 01/20/19 TIME: 16:53 Assessment/Plan VTE Prophylaxis Risk score (from Nsg)>0 risk: 1 SCD applied (from Nsg): No SCD contraindicated: low risk/ambulating Pharmacological prophylaxis: NA/contraindicated Pharm contraindication: low risk/ambulating Lines/Catheters IV Catheter Type (from Nrsg): Peripheral IV Assessment/Plan Assessment/Plan POST CSECTION DAY 2 HOME TOMORROW CBC TOMORROW COUNSELED INSTRUCTED PRESCRIPTION GIVEN FOR PAIN RETURN TO CLINIC IN 2 WEEKS CALL OFFICE IF THERE IS ANY PROBLEM OR CONCERN CONTINUE WITH VITAMINS OD AND FERROUS SULFATE 325MG PO TID DIET ADVISED Result Diagram: 01/19/1912 01/19/1912 Subjective 24 Hr Interval Summary Free Text/Dictation POST CSECTION DAY 2 LITTLE BOWEL MOVEMENT GOOD URINE OUTPUT FEELS LESS INCISIONAL PAINS Exam/Review of Systems Exam Vitals Vital Signs Date Temp Pulse Resp B/P (MAP) Pulse Ox O2 O2 Flow FiO2 Time Delivery Rate 01/20/19 98.4 76 18 132/80 15:35 (97) 01/20/19 Room Air 08:00 Intake and Output 01/19/19 01/19/19 01/20/19 1515:00 23:00 07:00 IntakeIntake Total 500 ml OutputOutput Total 2750 ml 2300 ml BalanceBalance -2250 ml -2300 ml Exam VITAL SIGNS STABLE: YES AFEBRILE: YES BREAST NOT ENGORGED, NON-TENDER, NO APPRECIABLE MASS: YES LUNGS CLEAR, NO RALES, WHEEZES, RHONCHI: YES SINUS RHYTHM WITHOUT MURMUR: YES ABDOMEN: NON-TENDER FUNDUS: BELOW UMBILICUS BOWEL SOUNDS: PRESENT UTERUS: FIRM INCISION (CLEAN, DRY, AND INTACT): YES LOCHIA: LIGHT DEEP TENDON REFLEXES: 0 EXTREMITIES: NO CALF TENDERNESS EDEMA SCALE: NONE Medications Medication Current Medications Methylergonovine Maleate (Methergine) 0.2 mg Q6H PRN PO .VAGINAL BLEEDING; Start 01/18/19 at 16:30 Acetaminophen/ Hydrocodone Bitart ([place] (5/325)) 1 tab Q4H PRN PO MODERATE PAIN LEVEL 4-6; Start 01/18/19 at 16:30 Acetaminophen/ Hydrocodone Bitart ([place] (5/325)) 2 tab Q4H PRN PO SEVERE PAIN LEVEL 7-10 Last administered on 01/20/19at 06:39; Admin Dose 2 TAB; Start 01/18/19 at 16:30 Ibuprofen (Motrin) 800 mg Q8 PRN PO MILD PAIN LEVEL 1-3 Last administered on 01/20/19at 13:29; Admin Dose 800 MG; Start 01/18/19 at 16:30 Simethicone (Mylicon) 160 mg Q8H PRN PO .GAS; Start 01/18/19 at 16:30 Senna/Docusate Sodium (Senokot-S) 1 tab BID PO Last administered on 01/20/19at 10:26; Admin Dose 1 TAB; Start 01/18/19 at 21:00 Lanolin (Lanolin Hpa) 1 applic BEDSIDE MEDICATION PRN TOP .NIPPLES; Start 01/18/19 at 16:30 Diphtheria/ Tetanus/Acell Pertussis (Adacel) 0.5 ml ONCE ONCE IM* ; Start 01/21/19 at 09:00; Stop 01/21/19 at 09:01 Measles/Mumps/ Rubella Vaccine Live (Mmr Ii Vaccine) 0.5 ml ONCE ONCE SC* ; Start 01/21/19 at 09:00; Stop 01/21/19 at 09:01 Methylergonovine Maleate (Methergine) 0.2 mg ONCE PRN IM .VAGINAL BLEEDING; Start 01/18/19 at 16:30 Carboprost Tromethamine (Hemabate) 250 mcg ONCE PRN IM .VAGINAL BLEEDING; Start 01/18/19 at 16:30 Misoprostol (Cytotec) 1,000 mcg ONCE PRN HI .VAGINAL BLEEDING; Start 01/18/19 at 16:30 Magnesium Hydroxide (Milk Of Mag) 30 ml ONCE ONCE PO ; Start 01/20/19 at 21:00; Stop 01/20/19 at 21:01 Bisacodyl (Dulcolax Supp) 10 mg ONCE ONCE HI ; Start 01/20/19 at 21:00; Stop 01/20/19 at 21:01 MYRA CARBONE MD Jan 20, 2019 16:55
[2019-01-20 20:00] VITALS: BP 125/77; PULSE 75; RESP 19
[2019-01-21 03:55] VITALS: BP 167/105; PULSE 89; RESP 19
[2019-01-21] MEDS: HYDROCODONE/APAP (5/325) TAB PO PRN (03:57)
[2019-01-21 04:25] VITALS: BP 144/87; PULSE 71; RESP 18
[2019-01-21] MEDS ORDERED: LABETALOL HCL 20MG INJ IV ONE (04:30)
[2019-01-21 05:09] VITALS: BP 123/77; PULSE 64; RESP 19
[2019-01-21 08:30] VITALS: BP 127/80; PULSE 101; RESP 18
[2019-01-21] MEDS: IBUPROFEN 800 MG TAB PO PRN (08:44)
[2019-01-21] MEDS ORDERED: DIPHTH/TET/ACEL PERTUSS (ADULT) 0.5 ML VIAL IM* ONE (09:00)
[2019-01-21] MEDS ORDERED: MEASLES,MUMPS,RUBELLA VACCINE INJ SC* ONE (09:00)
[2019-01-21] MEDS: SENNA/DOCUSATE NA (8.6MG/50MG) TAB PO SCH (09:00)
[2019-01-21 12:10] VITALS: BP 118/75; PULSE 64; RESP 14
--- NOTE | 2019-01-22 14:52 | DELSUM ---
Delivery Summary A-C Datetime Report Generated by CPN: 01/22/2019 14:52 DELIVERY PERSONNEL Blockers Skiver: Badgett, Cristina MATERNAL INFORMATION Delivery Anesthesia: Spinal Medications in Delivery: pitocin Delivery QBL (ml): 650 Placenta Cultured: No Maternal Complications: Other RN Comments: breech, pih r/o, PTL, OBEASE, 38 YRS OLD, BETA GIVEN NOV 2018 LABOR SUMMARY EDC: 01/29/2019 00:00 No. Babies in Womb: 1 Attempted: No Labor Anesthesia: None LABOR INFORMATION Reason for Induction: Not Applicable Oxytocin: N/A Group B Beta Strep: Negative Antibiotics # of Doses: 1 Antibiotics Time of Last Dose: 01/18/2019 15:00 Steroids Given: Full Course Reason Steroids Not Administered: Not Applicable MEMBRANES Membranes Rupture Method: Artificial Rupture of Membranes: 01/18/2019 15:10 Length of Rupture (hr): 0.02 Amniotic Fluid Color: Clear Amniotic Fluid Amount: Moderate Amniotic Fluid Odor: Normal STAGES OF LABOR Stage 3 hr: 0 Stage 3 min: 4 CSECTION DELIVERY Primary Indication: Breech Presentation Secondary Indication: Breech Presentation CSection Urgency: Elective CSection Incidence: Primary Labor: No Labor Elective: Elective CSection Incision: N/A BABY A INFORMATION Infant Delivery Date/Time: 01/18/2019 15:11 Method of Delivery: Born in Route : No : N/A Forceps: N/A Vacuum Extraction: N/A Shoulder Dystocia : No SHOULDER DYSTOCIA BABY A Delivery Date/Time: 01/18/2019 15:11 PRESENTATION/POSITION BABY A Presentation: Unable to Assess Cephalic Presentation: N/A Breech Presentation: Álvaro PLACENTA INFORMATION BABY A Placenta Delivery Time : 01/18/2019 15:15 Placenta Method of Delivery: Manual Removal Placenta Status: Delivered SCORES BABY A Heart Rate 1 min: >100 bpm Resp Effort 1 min: Good Cry Reflex Irritability 1 min: Cough/Sneeze/Pulls Away Muscle Tone 1 min: Active Motion Color 1 min: Body [place], Extremit Blue Resuscitation Effort 1 min: Tactile Stimulation; Oxygen SCORE 1 MIN: 9 Heart Rate 5 min: >100 bpm Resp Effort 5 min: Good Cry Reflex Irritability 5 min: Cough/Sneeze/Pulls Away Muscle Tone 5 min: Active Motion Color 5 min: Body [place], Extremit Blue Resuscitation Effort 5 min: Tactile Stimulation SCORE 5 MIN: 9 INFORMATION BABY A Gestational Age at Delivery: 38.3 Gestational Status: Early Term- 37- 38.6 Weeks Infant Outcome : Liveborn Infant Condition : Stable Sex: Female IDENTIFICATION/MEDS BABY A ID Band Number: [id number] ID Band Location: Right Leg; Left Arm Sensor Applied: Yes Sensor Number: [id number] Vitamin K Given : Not Given Erythromycin Given: Not Given WEIGHT/LENGTH BABY A Infant Birthweight (gm): 2975 Infant Weight (lb): 6 Weight (oz): 9 Infant Length (in): 20.00 Length (cm): 50.80 CORD INFORMATION BABY A No. Cord Vessels: 3 Nuchal Cord : Around Neck x1, Tight Cord Blood Taken: Yes Suction: Mouth; Nose ASSESSMENT BABY A Complications: Other Complications- Other: PTL, BETA GIVEN, PIH, BREECH Physical Findings at Delivery: Within Normal Limits Infant Respirations: Appears Normal [employer] Ic Layout Designer/ALS Called : Yes Infant Care By: DEREK MARTINEZ Transferred To: Remains with Mother
== END 2019-01-21 14:43 | disposition home or self-care (01) | DRG 788 ==
LOC: L-D 10:33 → PP1 20:44 → EDSTATUS 01-29 10:27
PROVIDERS: ADMIT Obstetrics & Gynecology; ATTEND Obstetrics & Gynecology
PROC: 3E033VJ Introduction of Other Hormone into Peripheral Vein, Percutaneous Approach (ICD-10-PCS; 2019-01-18)
PROC: 10D00Z1 Extraction of Products of Conception, Low, Open Approach (ICD-10-PCS; principal; 2019-01-18 14:00)
DX: O32.1XX0 Maternal care for breech presentation, not applicable or unspecified (principal); Z3A.38 38 weeks gestation of pregnancy; Z37.0 Single live birth
CPT/HCPCS: 71045; 80048; 80053; 81001; 84560; 85025; 85384; 85610; 85730; 86592; 86850; 86900; 86901; 87340; 99464; J0690; J1885; J2274; J2405; J2590; J3010; J7120